=== PATIENT | female | born 1960 | race African-American/Black ===

== ENCOUNTER 2017-12-09 10:37 | Inpatient (IN) | payer OTHER ==
[~2017-12-09] VITALS: Ht 162.6 cm; Wt 47.2 kg
[~2017-12-09 10:37] MED LIST: GLIP5TAB4 PO; METF500T2 PO
[2017-12-09 10:40] VITALS: BP 113/74
[2017-12-09] MEDS ORDERED: IBUP-1842 PO (10:46)
[2017-12-09] MEDS ORDERED: GABA300C PO (10:46)
[2017-12-09] MEDS ORDERED: ACET-2858 PO (10:46)
[2017-12-09] MEDS ORDERED: FOLI1TAB90 PO (10:47)
[2017-12-09] MEDS ORDERED: MEX2.5 PO (10:47)
--- NOTE | 2017-12-09 10:49 | NUR ---
PT PRESNETS TO ER VIA WC WITH C/O SACRAL OPEN WOUNDS AND GENERALIZED MALAISE 1 WEEK, PROGREASSSIVEL GETTING WORSE. 2 DECUBITUS ULCERS NOTED TO SACRAL AREA. NO ACTIVE BLEEDING NOTED, NO ODOR. PICTURES TAKEN. PT DENIES FEVERS/CHILLS, ONLY PAIN 8/10. PT REQUESTING FOOD TO EAT AND TO BE CLEANED UP. PT WITH POOR HYGIENE, APPEARS TO BE HOMELESS WITH ALL BELONGINGS IN W/C, BUT STATES SHE'S IN BETWEEN HOMES AT THIS TIME. RESP EVEN AND UNLABORED, ON RA@98%. DENIES DIARRHEA/VOMTITING. WAIITISIDRO FOR ER MD HOU.
[2017-12-09] MEDS ORDERED: NACL 0.9% 1,000 ML IV SCH (11:23)
[2017-12-09] MEDS ORDERED: PIPERACILLIN/TAZOBACTAM 3.375 GM in DEXTROSE 5% 50 ML IV ONE (11:25)
[2017-12-09] MEDS ORDERED: PIPERACILLIN/TAZOBACTAM 3.375 GM VIAL IV ONE (11:34)
[2017-12-09 11:56] LABS: BASOPHILS % (AUTO) 0.3 % (0.0-2.0); EOSINOPHILS # (AUTO) 0.2 K/uL (0-0.4); EOSINOPHILS % (AUTO) 2.3 % (0.0-4.0); HEMATOCRIT 25.3 % (36-48); HEMOGLOBIN 7.9 g/dL (12.0-16.0); LYMPHOCYTES # (AUTO) 1.7 K/uL (2.5-16.5); LYMPHOCYTES % (AUTO) 19.8 % (20.5-51.1); MEAN CORPUSCULAR HEMOGLOBIN 25 pg (27-31); MEAN CORPUSCULAR HGB CONC 31 g/dL (33-37); MEAN CORPUSCULAR VOLUME 80 fL (80-94); MONOCYTES # (AUTO) 0.5 K/uL (0.8-1.0); MONOCYTES % (AUTO) 5.3 % (1.7-9.3); NEUTROPHILS # (AUTO) 6.2 K/uL (1.8-7.7); NEUTROPHILS % (AUTO) 72.3 % (42.2-75.2); PLATELET COUNT (AUTO) 453 K/uL (140-450); RED BLOOD CELL COUNT(AUTO) 3.16 MIL/uL (4.20-5.40); RED CELL DISTRIBUTION WIDTH 18.1 % (11.6-13.7); WHITE BLOOD COUNT (AUTO) 8.6 K/uL (4.8-10.8)
[2017-12-09] MEDS ORDERED: KETOROLAC 30 MG/ML VIAL IVP ONE (12:05)
[2017-12-09 12:20] LABS: PROTHROMBIN TIME 10.5 secs (10.8-13.4)
[2017-12-09 12:27] LABS: ALBUMIN 1.8 g/dL (3.4-5.0); ANION GAP 17.5 (8-16); CARBON DIOXIDE 21.5 mmol/L (21-32); CREATININE 0.7 mg/dL (0.6-1.3); TOTAL BILIRUBIN 0.1 mg/dL (0.0-1.0)
[2017-12-09] MEDS ORDERED: NACL 0.9% 500 ML IV ONE (13:15)
--- NOTE | 2017-12-09 13:19 | NUR ---
IV FLUIDS AND IV ANBX INFUSING WELL ORDERED VIA PUMP
[2017-12-09] MEDS ORDERED: ZOLPIDEM 5 MG TAB PO PRN (13:30)
[2017-12-09] MEDS ORDERED: ONDANSETRON 4 MG/2 ML VIAL IM/IVP PRN (13:30)
[2017-12-09] MEDS ORDERED: LORazepam 0.5 MG TAB PO PRN (13:30)
[2017-12-09] MEDS ORDERED: HYDROcodone/APAP 7.5/325 MG 1 TAB PO PRN (13:30)
[2017-12-09] MEDS ORDERED: ACETAMINOPHEN 325 MG TAB PO PRN (13:30)
[2017-12-09] MEDS ORDERED: DOCUSATE SODIUM 100 MG GELCAP PO PRN (13:30)
--- NOTE | 2017-12-09 13:41 | NUR ---
LUNCH TRAY SET UP FOR PT
--- NOTE | 2017-12-09 14:05 | NUR ---
NO ACUTE CHANGES IN CONDITION, VSS
[2017-12-09 14:24] LABS: APPEARANCE,URINE CLEAR (CLEAR); BILIRUBIN,URINE NEGATIVE (NEGATIVE); BLOOD, URINE TRACE-I (NEGATIVE); LEUKOCYTE ESTERASE ,URINE NEGATIVE (NEGATIVE); NITRITE, URINE NEGATIVE (NEGATIVE); UGLUCOSE 3+ (NEGATIVE)
[2017-12-09 14:46] LABS: COLOR,URINE STRAW (YELLOW)
[2017-12-09 14:47] LABS: RBC,URINE 0-5 (RARE) /HPF (0-5); WBC,URINE 0-5 (RARE) /HPF (0-5)
--- NOTE | 2017-12-09 14:56 | NUR ---
Patient will be admitted to care of DR FULLER. Admited to TELE. Will go to room. Belongings list completed. Report to .
[2017-12-09 14:59] LABS: CHOL/HDL RATIO 3.8 (1-4.5); FREE T4 (FREE THYROXINE) 1.13 ng/dL (0.76-1.46); MAGNESIUM 1.6 mg/dL (1.8-2.4); PHOSPHORUS 2.3 mg/dL (2.5-4.9); THYROID STIMULATING HORMONE 0.05 uIU/mL (0.34-3.74)
--- NOTE | 2017-12-09 15:00 | NUR ---
RECEIVED PATIENT FROM ER NURSE, PATIENT UNABLE TO AMB, NOTED DEFORMED JOINTS D/T HX OF RA, PATIENT IS ON TELE MONITOR, SHOWS NO S/S OF ACUTE DISTRESS ON ROOM AIR, PATIENT HAS OPEN WOUNDS ON THE SACRUM REYNA,IV NOTED ON THE RIGHT AC WITH IVF'S INFUSING WELL, PATIENT STATES PAIN OF 10/10 AT SACRUM, DR LEON TO PLACE ORDERS FOR PATIENT PAIN. PATIENT WAS EXPLAINED POC FOR TODAY, HOSPITAL ENVIRONMENT, USE OF CALL LIGHT FOR ASSISTANCE. THE BED IS IN LOW POSITION WITH CALL LIGHT WITHIN REACH.
[2017-12-09 15:21] LABS: BARBITURATE, URINE NEG. ng/ml (NEG <=200); BENZODIAZEPINE, URINE NEG. ng/mL (NEG <=200); CANNABINOID, URINE NEG. ng/mL (NEG <=50); COCAINE, URINE NEG. ng/mL (NEG <=300); OPIATE, URINE POS. ng/mL (NEG <=2000); PHENCYCLIDINE SCREEN,URINE NEG. ng/mL (NEG <=25)
--- NOTE | 2017-12-09 16:00 | NUR ---
DR LEON AT BEDSIDE.
[2017-12-09] MEDS: NACL 0.9% 1,000 ML IV SCH ×2 (16:25→23:30)
[2017-12-09] MEDS: MORPHINE SULFATE 2 MG/ML SYR IVP PRN ×2 (16:28→20:05)
[2017-12-09] MEDS ORDERED: DEXTROSE 50% 50 ML SYR IVP PRN (16:30)
--- NOTE | 2017-12-09 16:30 | NUR ---
PATIENT WAS GIVEN MORPHINE 2 MG IVP FOR 10/10 SACRUM PAIN, PATIENT ALSO PREMEDICATED FOR WOUND CARE.
[2017-12-09] MEDS ORDERED: HYDROcodone/APAP 10/325 MG 1 TAB TAB PO PRN (16:55)
[2017-12-09] MEDS ORDERED: IBUPROFEN 400 MG TAB PO PRN (16:55)
[2017-12-09 16:58] VITALS: BP 105/52
[2017-12-09] MEDS: SODIUM PHOS / POTASSIUM PHOS 1 PKT PDR PO SCH (17:05)
[2017-12-09] MEDS ORDERED: MAG SULF 2000 MG/WATER PREMIX 100 ML IV ONE (17:05)
[2017-12-09] MEDS ORDERED: SODIUM PHOS / POTASSIUM PHOS 1 PKT PDR PO SCH (18:00)
--- NOTE | 2017-12-09 18:00 | NUR ---
PROVIDED PATIENT WITH WOUND CARE, COLLECTED AEROBIC AND ANAEROBIC CX FROM BOTH SACRAL WOUNDS AND SENT TO LAB.
[2017-12-09] MEDS: BLOOD GLUCOSE MONITORING 1 DEV DEV FS SCH ×2 (18:11→20:10)
[2017-12-09] MEDS: metFORMIN 500 MG TAB PO SCH (18:12)
[2017-12-09] MEDS: GABAPENTIN 300 MG CAP PO SCH (18:12)
[2017-12-09] MEDS: INSULIN LISPRO SLIDING SCALE 100 UNITS/ML VIAL SUBQ PRN ×2 (18:26→21:01)
--- NOTE | 2017-12-09 18:30 | NUR ---
ADMINISTERED SCHEDULED MEDICATIONS, PATIENT SWALLOWED MEDICATIONS WITHOUT DIFFICULTY. BLOOD SUGAR IS 303 INSULIN COVERAGE GIVEN. HUMALOG 8 UNITS SQ AT UPPER ARM. PATIENT REPOSITIONED, AND GIVEN SWABS FOR DRY MOUTH, WATER CUP WITHIN REACH, BED IN LOW POSITION WITH CALL LIGHT WITHIN REACH.
--- NOTE | 2017-12-09 18:56 | NUR ---
PATIENT REFUSES TO GET ULTRASOUND PROCEDURE DONE, PATIENT IS AGITATED AND STATING "GET ME UP I WANT TO GET IN MY CHAIR." SURFACE ROOM SHOP OPTICIAN NOTIFIED RN.
--- NOTE | 2017-12-09 19:00 | NUR ---
FOUND PATIENT YELLING AT COMMUNITY DEVELOPMENT OFFICER, COMMUNITY DEVELOPMENT OFFICER WAS ATTEMPTING TO CALM PATIENT DOWN. I ASKED PATIENT WHAT WAS WRONG, PATIENT STATED, "I NEED TO SIT UP ON MY CHAIR, I DON'T FEEL SAFE, YOU HAVE PEOPLE WITH PERFUME AND I FEEL MY THROAT CLOSING UP, HELP ME!" RN ATTEMPTED TO CALM PATIENT DOWN, ADVISED PATIENT SHE IS IN A SAFE PLACE AND WE WON'T HAVE ANYONE WITH PERFUME COME INTO HER ROOM. PATIENT STATED, "I LOST TRUST, I TOLD EVERYONE I'M ALLERGIC TO PERFUME AND PESTICIDES, I CAN'T BREATH THAT IN. PLEASE HELP ME GET UP FROM BED INTO MY CHAIR, NOW!" PATIENT WAS EXPLAINED I WOULD NEED ASSISTANCE, ERIC HOWELL CAME TO ASSIST.
--- NOTE | 2017-12-09 19:10 | NUR ---
ERIC RN CAME IN TO ASSIST IN TRANSFERRING PATIENT TO WHEELCHAIR, WHILE ATTEMPTING TO PLACE PATIENT ON WHEELCHAIR, PATIENT SAID, "I FEEL MY THROAT CLOSING UP, I CAN'T SWALLOW." PATIENT IS NOW IN WHEELCHAIR SECURED, V/S MACHINE WAS BROUGHT AND O2 SAT IS 99% ON ROOM AIR, PATIENT WAS EXPLAINED TO TAKE DEEP BREATHS TO TRY AND CALM DOWN; HOWEVER PATIENT BECAME AGITATED AND SAID, "YOU ARE NOT UNDERSTANDING ME, MY THROAT IS CLOSING UP, I CANNOT SWALLOW." PATIENT O2 SAT IS 94% ON ROOM AIR. PATIENT THEN STATED, " I NEED TO GET OUT OF HERE, I FEEL TRAPPED!"
--- NOTE | 2017-12-09 19:15 | NUR ---
WHILE ATTEMPTING TO CALM PATIENT DOWN, SHAWN PELLET POST INSPECTOR CAME IN AND PATIENT STATED, "ARE YOU WEARING POWDER DEODORANT, GET OUT! GET OUT!" SHAWN WAS ASKED TO STEP OUT AND COULD NOT DRAW LABS FOR PATIENT. ERIC ARRIVED WITH A OXYGEN MASK AT PATIENT'S REQUEST FOR O2, PATIENT WAS THEN TAKEN OFF IVF'S BC PATIENT WANTED TO LEAVE HER ROOM. THEN PATIENT LEFT ROOM AND WAS SITTING IN THE HALLWAY IN FRONT OF HER ROOM ON WHEELCHAIR. PATIENT THEN URINATED ON THE FLOOR, PATIENT WAS EXPLAINED SHE NEEDS TO GET CLEANED UP; HOWEVER, PATIENT REFUSED AND STATED, "LET ME JUST BREATH! I LOST ALL MY TRUST AT THIS HOSPITAL." JENI HOWELL ON UNIT, GAVE REPORT TO JENI HOWELL AND IS UP TO DATE ON STATUS OF PATIENT. PATIENT WAS ENDORSED IN STABLE CONDITION, PATIENT ASSISTED BACK INTO ROOM.
--- NOTE | 2017-12-09 19:16 | NUR ---
PATIENT REPORT RECEIVED FROM MORNING NURSE. PATIENT IN WHEELCHAIR RIGHT OUTSIDE HER ROOM. NOTICED PATIENT URINATED ON THE FLOOR. ASSISTED PATIENT BACK TO BED. PERICARE DONE, GOWN CHANGED. FLOOR AND WHEELCHAIR CLEANED. PATIENT COMPLAINED OF 8/10 GENERALIZED PAIN. WILL MEDICATE ORDERED. SAFETY PRECAUTIONS IN PLACE. BED IN LOWEST POSITION, SIDE RAILS UP AND CALL LIGHT WITHIN REACH. WILL CONTINUE TO MONITOR.
[2017-12-09 20:00] VITALS: BP 116/62
[2017-12-09] MEDS ORDERED: glipiZIDE 5 MG TAB PO SCH (21:00)
[2017-12-09] MEDS ORDERED: diphenhydrAMINE 50 MG/ML VIAL IVP ONE (21:10)
[2017-12-09] MEDS: PIPER/TAZO 3.375GM/D5W PREMIX 50 ML IV SCH (21:52)
--- NOTE | 2017-12-09 22:00 | NUR ---
PATIENT VOIDED IN BED. SHEETS AND GOWN CHANGED. PERICARE DONE. PATIENT REPOSITIONED FOR COMFORT. WILL CONTINUE TO MONITOR.
[2017-12-10] VITALS: BP 112/64
--- NOTE | 2017-12-10 | NUR ---
PATIENT VOIDED IN BED. SHEETS AND GOWN CHANGED. PERICARE DONE. PATIENT REPOSITIONED FOR COMFORT. WILL CONTINUE TO MONITOR.
[2017-12-10] MEDS: MORPHINE SULFATE 2 MG/ML SYR IVP PRN ×5 (01:05→21:23)
--- NOTE | 2017-12-10 03:00 | NUR ---
CHECKED ON PATIENT. PATIENT IS ASLEEP. NO SIGNS AND SYMPTOMS OF DISTRESS NOTED. BREATHING EVEN AND UNLABORED. WILL CONTINUE TO MONITOR.
[2017-12-10 04:00] VITALS: BP 117/88
[2017-12-10] MEDS: PIPER/TAZO 3.375GM/D5W PREMIX 50 ML IV SCH ×3 (04:17→21:23)
--- NOTE | 2017-12-10 04:30 | NUR ---
PATIENT STATED THAT SHE WAS HUNGRY AND THAT SHE HADN'T EATEN DINNER. PATIENT WAS ASLEEP MOST OF THE NIGHT. ASSISTED PATIENT WITH EATING APPLESAUCE. PATIENT TOLERATED WELL
[2017-12-10] MEDS: BLOOD GLUCOSE MONITORING 1 DEV DEV FS SCH ×4 (06:35→21:22)
[2017-12-10 07:21] LABS: ANION GAP 16.3 (8-16); BASOPHILS # (AUTO) 0.1 K/uL (0.00-0.22); BASOPHILS % (AUTO) 1.1 % (0.0-2.0); CARBON DIOXIDE 20.2 mmol/L (21-32); CREATININE 0.4 mg/dL (0.6-1.3); EOSINOPHILS # (AUTO) 0.4 K/uL (0-0.4); EOSINOPHILS % (AUTO) 5.9 % (0.0-4.0); HEMATOCRIT 25.1 % (36-48); HEMOGLOBIN 8.1 g/dL (12.0-16.0); LYMPHOCYTES # (AUTO) 1.8 K/uL (2.5-16.5); LYMPHOCYTES % (AUTO) 25.7 % (20.5-51.1); MEAN CORPUSCULAR HEMOGLOBIN 26 pg (27-31); MEAN CORPUSCULAR HGB CONC 32 g/dL (33-37); MEAN CORPUSCULAR VOLUME 81 fL (80-94); MONOCYTES # (AUTO) 0.3 K/uL (0.8-1.0); MONOCYTES % (AUTO) 3.9 % (1.7-9.3); NEUTROPHILS # (AUTO) 4.4 K/uL (1.8-7.7); NEUTROPHILS % (AUTO) 63.4 % (42.2-75.2); PLATELET COUNT (AUTO) 412 K/uL (140-450); POTASSIUM 3.5 mmol/L (3.5-5.1); RED BLOOD CELL COUNT(AUTO) 3.12 MIL/uL (4.20-5.40); RED CELL DISTRIBUTION WIDTH 18.3 % (11.6-13.7)
--- NOTE | 2017-12-10 07:24 | NUR ---
PATIENT REPORT GIVEN TO MORNING NURSE AT BEDSIDE. PATIENT IS IN STABLE CONDITION
--- NOTE | 2017-12-10 07:25 | NUR ---
ENDORSEMENT RECEIVED FROM MASS SPECTROSCOPIST NURSE. PATIENT IS SLEEPING COMFORTABLY. RESPIRATION EVEN, UNLABOR ON ROOM AIR. SKIN DRY AND WARM. IV PATENT AND INTACT. NO DISTRESS NOTED AT THIS TIME. BED AT LOW POSITION, SIDE RAILS UP. CALL LIGHT WITHIN REACH.
[2017-12-10 07:30] LABS: MAGNESIUM 1.7 mg/dL (1.8-2.4); PHOSPHORUS 2.9 mg/dL (2.5-4.9)
[2017-12-10 08:00] VITALS: BP 121/70
[2017-12-10 08:20] LABS: T4 (THYROXINE) 6.7 ug/dL (4.5-12.0)
[2017-12-10] MEDS: GABAPENTIN 300 MG CAP PO SCH ×3 (08:28→17:40)
[2017-12-10] MEDS: SODIUM PHOS / POTASSIUM PHOS 1 PKT PDR PO SCH (08:28)
[2017-12-10] MEDS: metFORMIN 500 MG TAB PO SCH ×2 (08:29→17:40)
[2017-12-10] MEDS: FOLIC ACID 1 MG TAB PO SCH (08:29)
[2017-12-10] MEDS: LACTOBACILLUS RHAMNOSUS GG 1 EACH CAP PO SCH (08:29)
--- NOTE | 2017-12-10 08:45 | NUR ---
PATIENT HAS BEEN SCREENED AND CATEGORIZED HIGH NUTRITION RISK. PATIENT WILL BE SEEN WITHIN 1-2 DAYS OF ADMISSION. 12/09/17-12/10/[address]
--- NOTE | 2017-12-10 09:00 | NUR ---
MEDICAL RECORD RELEASE CONSENT WAS OBTAINED AT BEDSIDE, SIGNED BY THE PATIENT. FAXED TO [facility]. WILL CONTINUE TO FOLLOW UP
[2017-12-10] MEDS: NACL 0.9% 1,000 ML IV SCH ×2 (09:30→21:28)
--- NOTE | 2017-12-10 09:30 | NUR ---
PT IS AT BEDSIDE. PATIENT ASKED FOR PAIN MED, WILL MEDICATE PER ORDER. PATIENT REQUESTED TO HAVE NECK BRACE, WILL NOTIFY MD. PATIENT ALSO REQUEST TO HAVE ONLY ONE DOCTOR ATTENDING TO HER TO PREVENT CONFUSION.
--- NOTE | 2017-12-10 10:15 | NUR ---
WOUND CARE EVALUATION NOTE: REASON FOR EVALUATION : GLUTEAL SURGICAL WOUNDS COMPLETE SKIN ASSESSMENT DONE ON THIS 57 Y/O FEMALE PATIENT ADMITTED TO [facility], WITH INITIAL DIAGNOSIS OF BUTTOCKS POST SURGICAL WOUND PAIN AND DRAINAGE. PAST MEDICAL HISTORY INCLUDE OM, OA RA, ANEMIA, EDEMA AND WI. PT WAS ADMITTED TO [place] ON 11/22/17 FOR I&D. ALL ABOVE INFORMATION OBTAINED FROM THE ADMISSION H&P AND PT. PT IS AAX4. LABS ARE WBC 7.0, H/H 8.1/25.1, GLUCOSE 79 AND ALBUMIN 1.8. PATIENT IS AAOX4. POOR SAFETY AWARENESS, SITTING AT THE EDGE OF BED, DOESN'T LIKE TO FOLLOW THE DIRECTIONS AND SUGGESTIONS. 3 RN ASSIST TO POSITION PT BACK TO SUPINE POSITION. SKIN WARM TO TOUCH WNL, SKIN TURGOR GOOD. CAPILLARY REFILLED <3 SEC. TOENAILS ARE SHORT AND THICKENED, NO HAIR GROWTH, BILATERAL DORSAL PEDAL PULSES PRESENT. INITIAL PLAN OF CARE DISCUSSED WITH PRIMARY RN AND PT. PT ABLE TO VERBALIZE UNDERSTANDING. 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 PAT DRY, APPLY HYDROGEL WITH ADAPTIC DRESSING AND COVER WITH DRY DRESSING QD AND PRN IF SOILING -CLEANSE RIGHT GLUTEAL WITH NS. PAT DRY, APPLY SILVASORB GEL WITH ADAPTIC DRESSING AND COVER WITH DRY DRESSING QD AND PRN IF SOILING -PAINT RIGHT LATERAL 5TH PHALANGES DRY BROWN SCAB WITH BETADINE SOLUTION QD AND LEAVE IT OPEN TO AIR -TURN AND REPOSITION PATIENT Q 2H -ASSESS AND MONITOR SKIN CONDITION DURING POSITION CHANGE -OFFLOAD BILATERAL GLUTEALS BY PLACING PILLOWS UNDER CALVES AT ALL TIMES, UNLESS OTHERWISE CONTRAINDICATED -PRESSURE REDISTRIBUTION SURFACE THERAPY -KEEP SKIN CLEAN AND DRY AT ALL TIMES. MAY APPLY BODY LOTION TO DRYNESS AREA. RECOMMENDATIONS DISCUSSED WITH PRIMARY RN WILL FOLLOW UP PATIENT Q7- 10 DAYS AND PRN. PLEASE CONTACT WOUND CARE NURSE FOR ANY CONCERNS, QUESTIONS AND CHANGES IN SKIN CONDITION. Addendum: 12/10/17 at 1334 by Sangeetha Garces RN (Grace) UN-STAGEABLE PRESSURE ULCER INJURY RIGHT LATERAL 5TH PHALANGES DRY BROWN SCAB 1X1CM DEPTH IS UTD.
--- NOTE | 2017-12-10 10:20 | NUR ---
DR. BARRETO WAS MADE AWARE OF HER MAG LEVEL 1.7, CA 7.7, REQUESTING TO HAVE MECHANICAL SOFT DIET.
--- NOTE | 2017-12-10 12:02 | NUR ---
PATIENT AWAKE, ALERT. RESPIRATION EVEN, UNLABOR ON ROOM AIR. COMPLAINED OF PAIN UPON TURNING TO THE SIDE, WILL MEDICATE PER ORDER. CALL LIGHT WITHIN REACH.
[2017-12-10] MEDS: HYDROcodone/APAP 10/325 MG 1 TAB TAB PO PRN ×2 (12:30→19:09)
--- NOTE | 2017-12-10 14:00 | NUR ---
CALLED [facility] TO FOLLOW UP WITH MEDICAL RECORD. VIRAJ STATED THEY RECEIVED THE CONSENT, BUT WILL PROCESS IT QUICKLY THEY CAN.
--- NOTE | 2017-12-10 14:28 | NUR ---
12/10/2017 RD INITIAL ASSESSMENT COMPLETED PLEASE REFER TO NUTRITION ASSESSMENT UNDER CARE ACTIVITY FOR ESTIMATED NUTRITIONAL NEEDS. CONTINUE [facility] FOR GLUCOSE CONTROL DIETARY WILL ASSIST PT WITH MENU SELECTIONS DAILY FOR BETTER ACCEPTANCE BOOST GLUCOSE CONTROL TID RD TO FOLLOW-UP IN 2-3 DAYS PATIENT IS HIGH RISK. ALEX LINDSEY, RD
--- NOTE | 2017-12-10 14:28 | NUR ---
SPOKE WITH DR. HERNANDEZ, HE PLACED ORDER FOR BOOST GLUCOSE CONTROL TID, [facility]
--- NOTE | 2017-12-10 14:30 | NUR ---
PATIENT WAS ON THE COMMODE, COMPLAINING OF CONSTIPATION AND PAIN, REFUSED TO HAVE ENEMA AND BECAME AGITATED, SCREAMING AT STAFF, WILL NOTIFY MD.
[2017-12-10 15:13] LABS: FOLIC ACID 14.4 ng/mL (>3.0)
--- NOTE | 2017-12-10 15:31 | NUR ---
IV WAS REMOVED ON HER RIGHT AC, CATHETER INTACT, NO ACTIVE BLEEDING SEEN. PATIENT TOLERATED WELL
--- NOTE | 2017-12-10 15:39 | NUR ---
PATIENT COMPLAINED OF FEELING PRESSURE ON THE HEAD, STATED SHE WANTS TO HAVE AN XRAY DONE. WILL NOTIFY .
[2017-12-10 16:00] VITALS: BP 140/62
--- NOTE | 2017-12-10 16:00 | NUR ---
DR. BARRETO WAS NOTIFIED REGARDING PATIENT WOUND CONSULT'S TREATMENT, AND MAG LEVEL 1.7
[2017-12-10] MEDS: glipiZIDE 5 MG TAB PO SCH (17:41)
[2017-12-10] MEDS: INSULIN LISPRO SLIDING SCALE 100 UNITS/ML VIAL SUBQ PRN (17:47)
--- NOTE | 2017-12-10 18:10 | NUR ---
PATIENT IS AWAKE, ALERT, EATING DINNER. RESPIRATION EVEN, UNLABOR ON ROOM AIR. DENIED PAIN AT THIS TIME. IV PATENT AND INTACT. CALL LIGHT WITHIN REACH
--- NOTE | 2017-12-10 19:23 | NUR ---
ENDORSEMENT GIVEN TO THE LAMP DECORATOR NURSE. PATIENT IS STABLE AT THIS TIME. PAIN REASSESSMENT IS ENDORSED TO RN PM
--- NOTE | 2017-12-10 19:24 | NUR ---
Patient's Plan of Care was discussed and reviewed with ENVIRONMENTAL SCIENTIST: MICHELLE MEJIA
[2017-12-10 20:00] VITALS: BP 121/74
--- NOTE | 2017-12-10 21:34 | NUR ---
PATIENT WAS GIVEN ORAL CARE WITH ORAL BALANCE CARE KIT.PATIENT WAS SOILED PATIENT IS CLEANED AND REPOSITIONED FOR COMFORT AND ASSISTED TO TURN AND REPOSITION.PATIENT REFUSED SCD'S.
--- NOTE | 2017-12-10 22:30 | NUR ---
PATIENT COMPLAINS OF INSOMNIA I OFFERED A SLEEPING AID TO THE PATIENT AND PATIENT AGREES PATIENT WAS MEDICATED WITH AMBIEN.PATIENT WAS CLEANED AND GOOD PERICARE GIVEN TO THE PATIENT I CALLED THE RESIDENT JAUN AND INFORMED HER THAT HER PERINEAL AREA IS SLIGHTLY REDDENED MD SAID HE WILL ORDER A CREAM.PATIENT WAS TURNED AND REPOSITIONED. DRESSING TO RT AND LT BUTTOCK HAVE BEEN CHANGED. PATIENT REFUSED SCD'S.CALL LIGHT WITHIN REACH.
[2017-12-10] MEDS: HYDRAGUARD CREAM TP SCH (23:05)
--- NOTE | 2017-12-11 00:30 | NUR ---
PATIENT SLEEPING IN BED IN NO DISTRESS WILL CONTINUE TO MONITOR.PATIENT WANTS DOOR CLOSED BED ALARM ON.
--- NOTE | 2017-12-11 02:29 | NUR ---
PATIENT IS CURRENTLY RESTING IN BED AT THIS TIME ASLEEP IS REPOSITIONING HERSELF IN BED.
--- NOTE | 2017-12-11 02:34 | NUR ---
PATIENT SOUND ASLEEP WITH MOUTH OPEN IN BED AT THIS TIME.PATIENT IS TURNING AND REPOSITIONING HERSELF IN BED.WILL CONTINUE TO MONITOR.CALL LIGHT WITHIN REACH.
--- NOTE | 2017-12-11 04:30 | NUR ---
PATIENT WAS CLEANED AND TURNED AND REPOSITIONED.CALL LIGHT WITHIN REACH.
[2017-12-11] MEDS: MORPHINE SULFATE 2 MG/ML SYR IVP PRN (04:44)
[2017-12-11] MEDS: PIPER/TAZO 3.375GM/D5W PREMIX 50 ML IV SCH ×3 (04:47→20:50)
[2017-12-11 05:00] VITALS: BP 156/66
--- NOTE | 2017-12-11 06:00 | NUR ---
PATIENT SLEEPING IN BED NO DISTRESS OFFERED SOME JUICE PATIENT WANTS TO WAIT FOR BREAKFAST.
[2017-12-11] MEDS: BLOOD GLUCOSE MONITORING 1 DEV DEV FS SCH ×4 (06:14→20:42)
[2017-12-11] MEDS: glipiZIDE 5 MG TAB PO SCH ×2 (06:48→16:56)
[2017-12-11 07:04] LABS: BASOPHILS # (AUTO) 0.1 K/uL (0.00-0.22); BASOPHILS % (AUTO) 0.9 % (0.0-2.0); EOSINOPHILS # (AUTO) 0.6 K/uL (0-0.4); EOSINOPHILS % (AUTO) 7.6 % (0.0-4.0); HEMATOCRIT 26.7 % (36-48); HEMOGLOBIN 8.8 g/dL (12.0-16.0); LYMPHOCYTES # (AUTO) 1.7 K/uL (2.5-16.5); LYMPHOCYTES % (AUTO) 21.9 % (20.5-51.1); MEAN CORPUSCULAR HEMOGLOBIN 26 pg (27-31); MEAN CORPUSCULAR HGB CONC 33 g/dL (33-37); MEAN CORPUSCULAR VOLUME 79 fL (80-94); MONOCYTES # (AUTO) 0.4 K/uL (0.8-1.0); MONOCYTES % (AUTO) 5.4 % (1.7-9.3); NEUTROPHILS % (AUTO) 64.2 % (42.2-75.2); PLATELET COUNT (AUTO) 448 K/uL (140-450); RED BLOOD CELL COUNT(AUTO) 3.38 MIL/uL (4.20-5.40); RED CELL DISTRIBUTION WIDTH 18.5 % (11.6-13.7); WHITE BLOOD COUNT (AUTO) 7.8 K/uL (4.8-10.8)
[2017-12-11 07:08] LABS: CARBON DIOXIDE 21.7 mmol/L (21-32); CREATININE 0.4 mg/dL (0.6-1.3); MAGNESIUM 1.6 mg/dL (1.8-2.4); PHOSPHORUS 4.2 mg/dL (2.5-4.9); POTASSIUM 3.7 mmol/L (3.5-5.1)
--- NOTE | 2017-12-11 07:11 | NUR ---
PATIENT ENDORSED TO RN PETER PATIENT SLEEPING CURRENTLY STABLE.CALL LIGHT WITHIN REACH.
--- NOTE | 2017-12-11 07:12 | NUR ---
RECEIVED REPORT FROM IMPORT CUSTOMS CLEARING AGENT NURSE. PATIENT IS AAOX4, RESPIRATORY EFFORT IS EVEN AND UNLABORED. NO SIGNS AND SYMPTOMS OF ACUTE DISTRESS NOTED AT THIS TIME. PATIENT HAS IV TO RIGHT WRIST 22G INFUSING NS AT 70ML. SITE IS CLEAN DRY PATENT AND INTACT. DISCUSSED PLAN OF CARE WITH PATIENT AND SHE VERBALIZED UNDERSTANDING. PATIENT HAS HER WHEELCHAIR, WITH ALL HER BELONGINGS, INCLUDING A BACK PACK, AND A SUITCASE ATTACHED TO THE CHAIR. BED IS IN LOWEST POSITION, SIDE RAILS UP X2, CALL LIGHT PLACED WITHIN REACH. WILL CONTINUE TO MONITOR.
[2017-12-11 08:00] VITALS: BP 135/79
[2017-12-11] MEDS: metFORMIN 500 MG TAB PO SCH ×2 (08:00→16:53)
[2017-12-11] MEDS: FOLIC ACID 1 MG TAB PO SCH (08:12)
[2017-12-11] MEDS: LACTOBACILLUS RHAMNOSUS GG 1 EACH CAP PO SCH (08:12)
[2017-12-11] MEDS: HYDROcodone/APAP 10/325 MG 1 TAB TAB PO PRN (08:12)
[2017-12-11] MEDS: GABAPENTIN 300 MG CAP PO SCH ×3 (08:13→16:53)
--- NOTE | 2017-12-11 08:15 | NUR ---
GAVE PATIENT A PAIN MEDICATION AND CHANGED HER SOILED CHUCKS AND POSITIONED HER ON HER SLIGHTLY ON HER LEFT.
[2017-12-11] MEDS ORDERED: ALBUTEROL SULFATE/IPRATROPIU 3 ML SOL IH PRN (08:50)
--- NOTE | 2017-12-11 08:50 | NUR ---
PHYSICAL THERAPY STAFF CAME AND REPORTED TO ME THAT PATIENT IS BEING VERY RUDE TO THEM, INSULTING THEM AND REFUSING TO DO PHYSICAL THERAPY. WENT INTO THE ROOM TO SEE WHAT WAS GOING ON. PATIENT WAS SITTING UP ON THE EDGE OF THE BED. PT AND ME LAID PATIENT BACK INTO BED. SHE STATED THAT PEOPLE ARE JUST TOO SENSITIVE, THAT SHE DIDN'T MEAN FOR THE THINGS SHE SAID TO COME OUT RUDE.
[2017-12-11] MEDS: HYDRAGUARD CREAM TP SCH (09:00)
[2017-12-11] MEDS ORDERED: ESCITALOPRAM 20 MG TAB PO SCH (09:07)
[2017-12-11] MEDS ORDERED: predniSONE 10 MG TAB PO SCH (09:08)
[2017-12-11] MEDS ORDERED: ASPIRIN 325 MG TABEC PO SCH ×2 (09:12→09:14)
[2017-12-11] MEDS ORDERED: MAGNESIUM OXIDE 400 MG TAB PO SCH (09:16)
[2017-12-11] MEDS ORDERED: ATORVASTATIN 20 MG TAB PO SCH (09:17)
[2017-12-11] MEDS: NAPROXEN 500 MG TAB PO SCH ×2 (10:18→20:50)
[2017-12-11] MEDS: ECOTRIN 81 MG TABEC PO SCH (10:19)
--- NOTE | 2017-12-11 10:20 | NUR ---
CHANGED PATIENTS DRESSING, TOLERATED WELL. Addendum: 12/11/17 at 1719 by Theresa Rico RN WRONG TIME
--- NOTE | 2017-12-11 11:01 | NUR ---
CHANGED PATIENTS DRESSING, TOLERATED WELL.
[2017-12-11] MEDS: oxyCODONE/APAP 5/325 MG 1 TAB TAB PO PRN ×2 (13:12→20:50)
[2017-12-11] MEDS: INSULIN LISPRO SLIDING SCALE 100 UNITS/ML VIAL SUBQ PRN (13:27)
--- NOTE | 2017-12-11 13:40 | NUR ---
1020 MET WITH PT WITH DR GILL PRESENT. DR GILL WAS DISCUSSING WITH PT POC AND PLAN FOR DISCHARGE. PT HAD WANTED SW TO FIND HER A STUDIO APARTMENT. DCM DISCUSSED OPTION OF SNF VS HOME HEALTH BUT IN ORDER TO HAVE HOME HEALTH PT WOULD NEED TO HAVE AN ADDRESS OF WHERE SHE WOULD BE STAYING. PT VOICED THAT SHE HAD BEEN IN SNFS AND QUESTIONED HOW SAFE SHE WOULD BE AND BEGAN TO RAMBLE ABOUT PREVIOUS SNFS SPREADING RUMORS ABOUT HER. REFOCUSED PT TO THE CURRENT SITUATION AND THE NEED TO PREPARE FOR DISCHARGE. INFORMED PT THAT I COULD HAVE REPRESENTATIVES FROM SEVERAL OF THE SNFS TO COME AND SPEAK WITH HER REGARDING WHAT THEY COULD OFFER AND ADDRESS ANY OF HER CONCERNS SHE MAY HAVE. PT UNWILLING TO PROVIDE DCM WITH AN ANSWER AT THIS TIME. DCM INDICATED THAT IF WOULD RETURN LATER TO DISCUSS AND FIND OUT HER DECISION. 1330 RETURNED TO PT'S ROOM TO DISCUSS DISCHARGE PLAN AND PT REFUSED TO PROVIDE THIS RN OUTPATIENT SURGERY WITH AN ANSWER UNTIL SHE HAD RECEIVED HER MEDICATION. TRIED TO REASON WITH PT THAT SHE JUST NEEDED TO INFORM DCM IF SHE WANTED TO SPEAK WITH REPRESENTATIVES OF SNFS OR NOT AND PT BECAME ARGUMENTATIVE AND RUDE. INFORMED PT THAT THE PHYSICIAN PLANNED TO DC IN SEVERAL DAYS AND SHE NEEDED TO COME UP WITH A PLAN FOR DISCHARGE SINCE IT SEEMS PT DOES WANT ANY ASSISTANCE FROM CM OR SS.
[2017-12-11] MEDS: NACL 0.9% 1,000 ML IV SCH (13:54)
[2017-12-11 16:00] VITALS: BP 117/68
--- NOTE | 2017-12-11 16:00 | NUR ---
MEENA AND MYSELF WENT IN TO CHANGE PATIENT AND REPOSITION HER. I CHANGED HER DRESSING AT THIS TIME, SHE TOLERATED WELL. SHE REFUSED BEING TURNED.
--- NOTE | 2017-12-11 16:00 | NUR ---
PHYSICAL THERAPY CO-SIGN The Physical Therapy Progress Notes documented by Forming Process Line Worker have been reviewed. I concur with the documentation of this EXPLORATION ENGINEER. Plan: continue PT as per plan of care if she remains in this hospital. Reviewed/Co-Signed by: LONG PearsonT Documentation Done by: Mirlande Kaplan EXPLORATION ENGINEER Addendum: 12/12/17 at 0819 by Sheri Traylor PT Amended: Links added.
[2017-12-11] MEDS ORDERED: DOCUSATE SODIUM 100 MG GELCAP PO SCH (17:02)
[2017-12-11] MEDS ORDERED: MORPHINE SULFATE 2 MG/ML SYR IVP PRN (17:20)
--- NOTE | 2017-12-11 19:34 | NUR ---
ENDORSED PATIENT TO HELP DESK MANAGER RN FOR CONTINUITY OF CARE. PATIENT IN STABLE CONDITION.
--- NOTE | 2017-12-11 19:35 | NUR ---
RECEIVED REPORT FROM DAY SHIFT RN, PATIENT RESTING IN BED, NO S/S OF DISTRESS NOTED, RESPIRATION EVEN AND UNLABORED, NO S/S OF DISTRESS NOTED, IV PATENT AND INTACT, INFUSING NS AT 70ML/HR. CALL LIGHT WITHIN REACH, SAFETY MEASURE ENSURED, WILL CONTINUE TO MONITOR.
[2017-12-11 20:00] VITALS: BP 128/75
[2017-12-11] MEDS: DOCUSATE SODIUM 100 MG GELCAP PO SCH (20:50)
--- NOTE | 2017-12-11 20:54 | NUR ---
DUE MEDICATION GIVEN, PATIENT TOLERATED WELL. NO S/S OF DISTRESS NOTED, RESPIRATION EVEN AND UNLABORED, AIR BRAKE RIGGER IS IN THE ROOM CLEANING THE PATIENT, CALL LIGHT WITHIN REACH, SAFETY MEASURE ENSURED, WILL CONTINUE TO MONITOR.
--- NOTE | 2017-12-11 22:36 | NUR ---
PATIENT ASKED FOR REPOSITIONING, REPOSITIONED PATIENT WITH THE HEALTH UNIT SUPERVISOR REQUESTED. CALL LIGHT WITHIN REACH, SAFETY MEASURE ENSURED, WILL CONTINUE TO MONITOR.
[2017-12-12] VITALS: BP 119/67
[2017-12-12] MEDS: HYDROcodone/APAP 10/325 MG 1 TAB TAB PO PRN ×3 (00:37→19:09)
--- NOTE | 2017-12-12 00:56 | NUR ---
CHANGED BOTH DRESSING, AND REPOSITIONED THE PATIENT, ADMINISTER PAIN MEDICATION ORDERED. CALL LIGHT WITHIN REACH, SAFETY MEASURE ENSURED, WILL CONTINUE TO MONITOR.
--- NOTE | 2017-12-12 02:21 | NUR ---
PATIENT ASKED ME TO CHANGE HER DRESSING, UPON ASSESSMENT, DRESSING ARE DRY AND INTACT, BUT PATIENT INSIST, BOTH DRESSING CHANGED ASKED, CLEANED THE PATIENT AND CHANGED THE SHEET. REPOSITIONED PATIENT WITH THE WELLNESS AMBASSADOR, CALL LIGHT WITHIN REACH, SAFETY MEASURE ENSURED, WILL CONTINUE TO MONITOR.
[2017-12-12] MEDS: PIPER/TAZO 3.375GM/D5W PREMIX 50 ML IV SCH ×2 (04:07→12:01)
[2017-12-12] MEDS: NACL 0.9% 1,000 ML IV SCH (04:07)
--- NOTE | 2017-12-12 04:25 | NUR ---
HEARD PATIENT YELLING AT THE DOWNSTAIRS MAID, UPON ASSESSMENT, PATIENT SAID," SHE DOESN'T KNOW HOW TO DO HER JOB, SHE DOESN'T KNOW WHAT I AM GOING THROUGH." ASKED PATIENT ANYTHING THAT I COULD DO, PATIENT SAID PAIN 07/19, WILL GIVE PAIN MEDICATION ORDERED.
[2017-12-12] MEDS: oxyCODONE/APAP 5/325 MG 1 TAB TAB PO PRN ×2 (04:30→15:02)
[2017-12-12] MEDS: BLOOD GLUCOSE MONITORING 1 DEV DEV FS SCH ×2 (06:40→11:47)
--- NOTE | 2017-12-12 06:46 | NUR ---
PATIENT YELLING AT CLEAN UP SUPERVISOR," YOU WEAR PERFUME, GET OUT OF MY ROOM, GET OUT, YOU SHOULD NOT WEAR PERFUME WHEN YOU COME TO WORK, I AM ALLERGIC TO THAT SMELL. I CAN'T BREATH, GET OUT." ASSESSMENT DONE, NO S/S OF DISTRESS NOTED, RESPIRATION EVEN AND UNLABORED. PATIENT ASKED ME TO REPOSITIONED HER, I SAID," I NEED TO FIND ANOTHER CLEAN UP SUPERVISOR TO HELP ME." WHEN I BROUGHT ANOTHER CLEAN UP SUPERVISOR IN THE ROOM TO TURN THE PATIENT, PATIENT YELLED AT THE CLEAN UP SUPERVISOR, " YOU STUPID WEAR PERFUME, DON'T TOUCH ME, GET OUT." INFORMED PATIENT THAT THE CLEAN UP SUPERVISOR DOES NOT WEAR PERFUME, PATIENT YELLED AT ME," YOU LIAR, YOU LIED TO ME, THAT PERSON WEAR PERFUME UNDER HER CLOTHES, WHEN SHE MOVES, I CAN SMELL IT." FOUND ANOTHER RN TO HELP ME TURN THE PATIENT, REPOSITIONED THE PATIENT ASKED. CALL LIGHT WITHIN REACH, SAFETY MEASURE ENSURED, WILL CONTINUE TO MONITOR.
[2017-12-12] MEDS: glipiZIDE 5 MG TAB PO SCH ×2 (06:48→16:30)
--- NOTE | 2017-12-12 07:20 | NUR ---
ENDORSED PLAN OF CARE TO DAY SHIFT RN, PATIENT IS IN STABLE CONDITION, NO S/S OF DISTRESS.
[2017-12-12 08:00] VITALS: BP 120/56
[2017-12-12 08:04] LABS: BASOPHILS % (AUTO) 0.5 % (0.0-2.0); EOSINOPHILS # (AUTO) 0.4 K/uL (0-0.4); EOSINOPHILS % (AUTO) 5.3 % (0.0-4.0); HEMATOCRIT 24.9 % (36-48); HEMOGLOBIN 7.9 g/dL (12.0-16.0); LYMPHOCYTES % (AUTO) 24.3 % (20.5-51.1); MEAN CORPUSCULAR HEMOGLOBIN 25 pg (27-31); MEAN CORPUSCULAR HGB CONC 32 g/dL (33-37); MEAN CORPUSCULAR VOLUME 80 fL (80-94); MONOCYTES # (AUTO) 0.4 K/uL (0.8-1.0); MONOCYTES % (AUTO) 4.7 % (1.7-9.3); NEUTROPHILS # (AUTO) 5.6 K/uL (1.8-7.7); NEUTROPHILS % (AUTO) 65.2 % (42.2-75.2); PLATELET COUNT (AUTO) 478 K/uL (140-450); RED BLOOD CELL COUNT(AUTO) 3.12 MIL/uL (4.20-5.40); RED CELL DISTRIBUTION WIDTH 18.4 % (11.6-13.7); WHITE BLOOD COUNT (AUTO) 8.4 K/uL (4.8-10.8)
--- NOTE | 2017-12-12 08:11 | NUR ---
PT ASSISTED TO SIT UP TO SIDE OF BED FOR BREAKFAST.
--- NOTE | 2017-12-12 08:12 | NUR ---
PT STATES STOKES AND TOAST ARE TOO CRUNCHY FOR HER TO EAT BECAUSE SHE DOES NOT HAVE TEETH, PEANUT BUTTER AND JELLY SANDWITCH REQUESTED FROM [employer].
--- NOTE | 2017-12-12 08:30 | NUR ---
PT REPEATEDLY PUSHES CALLBELL, PT NOW REQUESTING MORE COFFEE, WILL GET HER A CUP.
[2017-12-12] MEDS ORDERED: ASPIRIN 325 MG TABEC PO SCH ×2 (09:00)
[2017-12-12] MEDS ORDERED: ECOTRIN 81 MG TABEC PO SCH (09:00)
[2017-12-12] MEDS ORDERED: ATORVASTATIN 20 MG TAB PO SCH (09:00)
[2017-12-12] MEDS ORDERED: ESCITALOPRAM 20 MG TAB PO SCH (09:00)
[2017-12-12] MEDS ORDERED: predniSONE 10 MG TAB PO SCH (09:00)
--- NOTE | 2017-12-12 09:10 | NUR ---
PT ASSISTED TO BEDSIDE COMMODE BY STUDENT NURSE.
[2017-12-12] MEDS: ECOTRIN 81 MG TABEC PO SCH (09:16)
[2017-12-12] MEDS: NAPROXEN 500 MG TAB PO SCH (09:17)
[2017-12-12] MEDS: metFORMIN 500 MG TAB PO SCH ×2 (09:18→19:09)
[2017-12-12] MEDS: FOLIC ACID 1 MG TAB PO SCH (09:18)
[2017-12-12] MEDS: LACTOBACILLUS RHAMNOSUS GG 1 EACH CAP PO SCH (09:18)
[2017-12-12] MEDS: GABAPENTIN 300 MG CAP PO SCH ×3 (09:19→19:09)
[2017-12-12] MEDS: DOCUSATE SODIUM 100 MG GELCAP PO SCH (09:19)
--- NOTE | 2017-12-12 09:30 | NUR ---
DR BOOKER TO BEDSIDE, PT ON BEDSIDE COMMODE, C/O UNABLE TO HAVE BM, ENEMA ORDERED.
--- NOTE | 2017-12-12 09:35 | NUR ---
PT RETURNED BACK TO BED FROM BEDSIDE COMMODE, STATES SHE IS IN IMMENSE PAIN,08/18, WILL GIVEN NORCO. OTHER AM MEDS GIVEN AMBERLY WELL. Addendum: 12/12/17 at 1254 by Delaney Anderson RN MODERATE SIZE ROUND BROWN HARD STOOL NOTED IN BEDSIDE COMMODE.
[2017-12-12] MEDS: HYDRAGUARD CREAM TP SCH (09:37)
--- NOTE | 2017-12-12 09:50 | NUR ---
PT ASSISTED FROM SIDE OF BED BACK UP TO BED, POSITIONED FOR COMFORT WITH PILLOWS UNDER LEGS, NEW WARM BLANKET, MEDICATED FOR PAIN, PT REFUSES ENEMA NOW, WILL OFFER LATER, CALL MARTINI WITHIN REACH, SIDE RAILS UP, WILL CONTINUE TO MONITOR.
[2017-12-12 10:27] LABS: ANION GAP 17.1 (8-16); CARBON DIOXIDE 20.6 mmol/L (21-32); CREATININE 0.5 mg/dL (0.6-1.3); POTASSIUM 3.7 mmol/L (3.5-5.1)
[2017-12-12 10:28] LABS: MAGNESIUM 1.6 mg/dL (1.8-2.4); PHOSPHORUS 3.6 mg/dL (2.5-4.9)
--- NOTE | 2017-12-12 10:45 | NUR ---
PT REFUSES ENEMA AT THIS TIME, PT REQUESTS IT TO BE DONE AT LATER TIME.
--- NOTE | 2017-12-12 11:17 | NUR ---
Social Service Note: I met with patient at bedside. Per patient, she is in agreement with LTAC or SNF short term placement. She reported she has an one negative experience at SNF previously but is willing to be transfer to a SNF upon discharge. She requested I contact a nursing facility located in [place], [place]; and inquired if she could meet with a call center representative from [facility]. She stated she is in agreement with any SNF located in [place], [place]. I I called Ted from [facility] no answer, left message. I faxed patient's face sheet to [facility]. Addendum: 12/12/17 at 1414 by Tasneem HANSEN Per patient, she does not want to go to a snf located in [place], [place].
[2017-12-12] MEDS: INSULIN LISPRO SLIDING SCALE 100 UNITS/ML VIAL SUBQ PRN (11:47)
--- NOTE | 2017-12-12 11:50 | NUR ---
2UNITS INSULIN GIVEN PER SLIDING SCALE FOR BS 172. PT AMBERLY WELL.
--- NOTE | 2017-12-12 12:15 | NUR ---
12/12/17 RD FOLLOW UP COMPLETED Please refer to nutrition assessment under care activity for estimated needs. Recommendations: 1. Continue 60gm CCHO diet as tolerated. 2. Appreciate food preferences. 3. Provide Boost plus (chocolate) if pt refuses meal, flavor per pt preference. RD will follow up in 2-3 days; high risk. Lani Kaur RD, [facility]
--- NOTE | 2017-12-12 12:19 | NUR ---
WOUND CARE AND DRESSING CHANGE DONE PER WOUND CARE NURSE RECOMMENDATION, PT AMBERLY WELL.
--- NOTE | 2017-12-12 12:30 | NUR ---
PT ASSISTED TO SIT UP AT SIDE OF BED FOR LUNCH, PT ASSISTED WITH OPENING OF SOUP, JELLO, APPLESAUCE, COFFEE CREAMER WITH SUGAR, CALL MARTINI WITHIN REACH, WILL CONTINUE TO MONITOR
--- NOTE | 2017-12-12 12:49 | NUR ---
EXTRA BOWL OF TOMATO SOUP PROVIDED PER PT REQUEST.
--- NOTE | 2017-12-12 13:20 | NUR ---
PT ASSISTED UP TO BEDSIDE COMMODE, LARGE URINE VOIDED, PT ASSISTED BACK TO BED, POSITIONED FOR COMFORT, PILLOWS FOR COMFORT AND TO OFFLOAD PRESSURE POINTS, CALL MARTINI WITHIN REACH, SIDE RAIL UP, WILL CONTINUE TO MONTIOR
--- NOTE | 2017-12-12 13:41 | NUR ---
Social Service Note: SNF placement follow up: I faxed inquires to [facility] , [facility] , and [facility] . Per Bessy from [facility], no female beds available at this time. Per Tesha from [facility], no female beds available at this time, she stated they received snf referral from another hospital in the past and their snf had concerns regarding patient's behavior, unable to accept patient. I was informed by salon receptionist from [facility], we needed to call back on Thursday, admission coordinator not available on this weekend. I faxed inquiry to [facility] . Per Sue from [facility], they can accept patient, room 29B. I went to patient's room to provide her with a snf placement update. At first patient agreed with going to [facility] and was calm. However, patient demanded we fix her wheelchair scooter because she alleged E.R. staff broke it. She accused hospital staff of wanting to throw her somewhere. Patient raised her voice and became agitated. I attempted to call patient down multiple times, attempts were not successful. I explained to her that we don't throw patients out, on contrary we made efforts to ensure our patients had a safe discharge plan. Patient stated she wanted to leave hospital and reported she did not want to go to any facility. I relayed the above information to charge nurse Nuzhat. Addendum: 12/12/17 at 1420 by Tasneem HANSEN Correction: I explained to her that we don't throw patients out, on contrary we make efforts to ensure our patients have a safe discharge plan Addendum: 12/12/17 at 1518 by Tasneem Horta Was informed by patient's nurse patient is in agreement with going to [facility], stated patient would like to know if snf has a smoking area. Per Sue from [facility] they have smoking areas outside, informed patient's nurse of this.
[2017-12-12] MEDS ORDERED: MAGNESIUM OXIDE 400 MG TAB PO SCH (14:35)
[2017-12-12] MEDS ORDERED: ATI.5 PO (14:55)
[2017-12-12] MEDS ORDERED: DOCU-299 PO (14:55)
[2017-12-12] MEDS ORDERED: GLUC-805 FS (14:55)
[2017-12-12] MEDS ORDERED: D50SYR IVP (14:55)
[2017-12-12] MEDS ORDERED: PIPE1SOL IV (14:55)
[2017-12-12] MEDS ORDERED: PRED10TA5 PO (14:55)
[2017-12-12] MEDS ORDERED: HUMSLIDE SUBQ (14:55)
[2017-12-12] MEDS ORDERED: Hydraguard TP (14:55)
[2017-12-12] MEDS ORDERED: IPRA3AMP IH (14:55)
[2017-12-12] MEDS ORDERED: LACT10CA PO (14:55)
[2017-12-12 16:00] VITALS: BP 113/71
--- NOTE | 2017-12-12 16:00 | NUR ---
PT ASSISTED TO SIT UP AT SIDE OF BED FOR COFEE AND BOOST.
--- NOTE | 2017-12-12 16:26 | NUR ---
PT REQUESTS ROBERTH SANDWITCH, DIETARY CALLED AND LEFT MESSAGE.
--- NOTE | 2017-12-12 17:08 | NUR ---
PT ASSISTED UP TO BEDSIDE COMMODE, AMBERLY WELL, PT MADE AWARE OF PLAN [place]SP[place] 1930 [place] [facility] [place] VAN TO COME GET HER SCOOTER/WHEELCHAIR AT 1999, PT AGREEABLE WITH PLAN.
--- NOTE | 2017-12-12 17:20 | NUR ---
REPORT CALLED [place] [facility] [phone] NURSE SUSHIL, ALL QUESTIONS ASKED AND ANSWERED, ACCEPTING DR LEONOR LING, ETA FOR TRANSPORT [facility], PT AWARE OF PLAN, PT NOTIFIED HER ROOM NUMBER 29B, WILL CONTINUE TO MONITOR.
--- NOTE | 2017-12-12 17:30 | NUR ---
PT ASSISTED TO SIT UP TO SIDE OF BED FOR DINNER, PT AMBERLY WELL, ASSISTED WITH OPENING PACKAGES, BUTTERING BREAD, CALL MARTINI WITHIN REACH, WILL CONTINUE TO MONTIOR.
--- NOTE | 2017-12-12 18:09 | NUR ---
PT PHOTO TAKEN OF WOUNDS, PT ASSISTED WITH DRESSING INTO HER STREET CLOTHES, AWAITING [place] [facility] [place]
--- NOTE | 2017-12-12 19:20 | NUR ---
TRANSPORT HERE TO PICK HER UP, PT NOW REFUSES TO TAKE "PREMIRE" TO GO TO [facility], PT STATES "I HAD BAD EXPEIRENCE WITH THEM BEFORE", PT STATES SHE WOULD RATHER LEAVE ON HER OWN THAN TO TAKE PREMIRE", PT REPEATEDLY ENCOURAGED TO TAKE THE TRANSPORTATION AVAILABLE NOW TO [facility] [place] SINCE IT IS LATE AND DARK OUTSIDE BUT PT ADAMANTLY REFUSES TO TAKE PREMIRE AND STATES SHE WOULD RATHER LEAVE IN HER WHEELCHAIR TO TAKE THE BUS. CHARGE NURSE AND RESIDEN DOCTOR MADE AWARE.
--- NOTE | 2017-12-12 19:50 | NUR ---
PATIENT REFUSED TO GO BY STATED SHE HAS A PROBLEM WITH THEM WANTED TO SIGN AMA. DR BUI TALKED TO HER EXPLAIN THE HIGH RISK FOR GOING AMA BUT PATIENT VERY UNCOOPERATIVE , VERBALLY ABUSIVE. SIGNED AMA .CALLED AND CANCELLED THE ELECTRIC WHEELCHAIR TRANSPORT WITH .
--- NOTE | 2017-12-12 19:57 | NUR ---
CALLED [facility] AND NOTIFIED PRAVIN HOWELL THAT PATIENT REFUSED TO COME AND SIGN AMA.
== END 2017-12-12 19:55 | disposition left against medical advice (07) | DRG 592 ==
LOC: MED 10:37 → MTU 13:30
PROVIDERS: ADMIT Family Medicine Sports Medicine; ATTEND Family Medicine Sports Medicine
DX: L89.314 Pressure ulcer of right buttock, stage 4 (principal); N17.0 Acute kidney failure with tubular necrosis; E43 Unspecified severe protein-calorie malnutrition; D68.59 Other primary thrombophilia; E11.51 Type 2 diabetes mellitus with diabetic peripheral angiopathy without gangrene; E11.65 Type 2 diabetes mellitus with hyperglycemia; E83.42 Hypomagnesemia; E87.8 Other disorders of electrolyte and fluid balance, not elsewhere classified; Z68.1 Body mass index [BMI] 19.9 or less, adult; L89.324 Pressure ulcer of left buttock, stage 4; D64.9 Anemia, unspecified; Z53.21 Procedure and treatment not carried out due to patient leaving prior to being seen by health care provider; I70.209 Unspecified atherosclerosis of native arteries of extremities, unspecified extremity; M06.9 Rheumatoid arthritis, unspecified; F43.9 Reaction to severe stress, unspecified; B96.20 Unspecified Escherichia coli [E. coli] as the cause of diseases classified elsewhere; B95.5 Unspecified streptococcus as the cause of diseases classified elsewhere; D47.3 Essential (hemorrhagic) thrombocythemia; E83.51 Hypocalcemia; M99.01 Segmental and somatic dysfunction of cervical region; J84.10 Pulmonary fibrosis, unspecified; M43.12 Spondylolisthesis, cervical region; M47.892 Other spondylosis, cervical region; F17.210 Nicotine dependence, cigarettes, uncomplicated; E05.90 Thyrotoxicosis, unspecified without thyrotoxic crisis or storm; J45.909 Unspecified asthma, uncomplicated; I25.2 Old myocardial infarction; Z59.0 Homelessness
CPT/HCPCS: 36415; 36600; 71045; 71111; 72052; 80048; 80053; 80305; 81001; 82150; 82607; 82746; 82803; 82948; 83036; 83605; 83690; 83735; 83880; 84100; 84436; 84439; 84443; 84479; 84484; 85025; 85045; 85610; 85730; 87040; 87070; 87081; 87086; 87186; 90471; 90715; 93005; 93925; 93970; 96365; 96375; 97110; 97140; 97530; 99285; A4649; J1200; J1815; J1885; J2270; J2543; J3475; J7030; J7060; J7512; Q0092

== ENCOUNTER 2017-12-24 18:58 | Emergency (ER) | payer OTHER ==
[~2017-12-24] VITALS: Ht 162.6 cm; Wt 54.9 kg
[~2017-12-24 18:58] MED LIST changes: +ACET-2858 PO; +ATI.5 PO; +D50SYR IVP; +DOCU-299 PO; +FOLI1TAB90 PO; +GABA300C PO; +GLUC-805 FS; +HUMSLIDE SUBQ; +Hydraguard TP; +IBUP-1842 PO; +IPRA3AMP IH; +LACT10CA PO; +MEX2.5 PO; +PIPE1SOL IV; +PRED10TA5 PO
[2017-12-24 19:34] VITALS: BP 134/70
--- NOTE | 2017-12-24 19:44 | NUR ---
PT RETURNED TO LOBBY
--- NOTE | 2017-12-24 20:30 | NUR ---
PT MOVED UP IN CHAIR BY TWO RN'S
--- NOTE | 2017-12-24 22:45 | NUR ---
57 Y/O FEMALE BIB SELF C/O BILAT LEG PAIN W/ EDEMA. PT AMB WITH WHEELCHAIR PT STATES PAIN IS CHRONIC W/ HISTORY OF ARTHIRITS. PT DENIES ANY N/V/D/, SOB, CP AT THE [facility]. PT AAOX4, PT WAS ASSISTED FROM WHEELCHAIR TO ER BED 12. PT STATES SHE TAKES GABAPTETIN 600 MG, METFORMIN 1G, GLIPIZIDE 5MG, AND NORCO 325 ALL OTHER MEDS UNABTAINABLE AT THE [facility] PT CANNOT RECALL
[2017-12-24 23:25] LABS: BASOPHILS # (AUTO) 0.1 K/uL (0.00-0.22); BASOPHILS % (AUTO) 1.3 % (0.0-2.0); EOSINOPHILS # (AUTO) 0.3 K/uL (0-0.4); EOSINOPHILS % (AUTO) 2.7 % (0.0-4.0); HEMATOCRIT 26.7 % (36-48); HEMOGLOBIN 8.4 g/dL (12.0-16.0); LYMPHOCYTES # (AUTO) 1.4 K/uL (2.5-16.5); LYMPHOCYTES % (AUTO) 14.1 % (20.5-51.1); MEAN CORPUSCULAR HEMOGLOBIN 25 pg (27-31); MEAN CORPUSCULAR HGB CONC 32 g/dL (33-37); MEAN CORPUSCULAR VOLUME 79 fL (80-94); MONOCYTES # (AUTO) 0.3 K/uL (0.8-1.0); MONOCYTES % (AUTO) 2.5 % (1.7-9.3); NEUTROPHILS % (AUTO) 79.4 % (42.2-75.2); PLATELET COUNT (AUTO) 418 K/uL (140-450); RED CELL DISTRIBUTION WIDTH 18.2 % (11.6-13.7); WHITE BLOOD COUNT (AUTO) 10.1 K/uL (4.8-10.8)
[2017-12-24 23:37] LABS: ANION GAP 16.3 (8-16); CARBON DIOXIDE 24.1 mmol/L (21-32); CREATININE 0.6 mg/dL (0.6-1.3); POTASSIUM 3.4 mmol/L (3.5-5.1)
[2017-12-24] MEDS ORDERED: INSULIN REGULAR, HUMAN 100 UNIT/ML VIAL IVP ONE (23:40)
[2017-12-24 23:42] LABS: ALBUMIN 2.1 g/dL (3.4-5.0); TOTAL BILIRUBIN 0.1 mg/dL (0.0-1.0)
[2017-12-25] MEDS ORDERED: INSULIN REGULAR, HUMAN 100 UNIT/ML VIAL SUBQ ONE (01:20)
--- NOTE | 2017-12-25 01:35 | NUR ---
Patient appears to be resting comfortably in bed. Vital Signs within normal limits. Respirations even and unlabored.
--- NOTE | 2017-12-25 06:43 | NUR ---
Patient discharged with v/s stable. Written and verbal after care instructions given and explained. Patient verbalized understanding. Wheel Chair Assisted with to home. All questions addressed prior to discharge. Advised to follow up with PMD.
[2017-12-25 06:44] VITALS: BP 119/69
== END 2017-12-25 06:43 | disposition home or self-care (01) ==
LOC: MED 18:58
DX: M79.605 Pain in left leg (principal); M79.604 Pain in right leg; E11.9 Type 2 diabetes mellitus without complications; M06.9 Rheumatoid arthritis, unspecified; M19.90 Unspecified osteoarthritis, unspecified site; Z79.899 Other long term (current) drug therapy; Z79.84 Long term (current) use of oral hypoglycemic drugs
CPT/HCPCS: 36415; 80053; 82948; 85025; 87040; 99284; J1815

== ENCOUNTER 2018-04-22 09:49 | Inpatient (IN) | payer OTHER ==
[~2018-04-22] VITALS: Ht 162.6 cm; Wt 58.5 kg
[2018-04-22 09:53] VITALS: BP 139/77
--- NOTE | 2018-04-22 10:10 | NUR ---
PT BY MOTORIZED WHEELCHAIR TO BED 3
--- NOTE | 2018-04-22 10:22 | NUR ---
57 YO PT W/ C/O POSSIBLE INFECTION TO WOUNDS ON BILAT ARMS AND BUTTOCKS. PT REPORTS THE WOUND ON HER BUTTOCKS IS FROM A SURGERY, BUT SHE WOULD NOT DISCUSS THE DETAILS OF SURGERY OR WHEN THE SURGERY WAS. PT IS UNABLE TO AMBULATE AND HAS HER MOTORIZED W/C. REPORTS SHE WAS AT A FACILITY AND LEFT THERE AMA, DID NOT SAY WHICH FACILITY OR WHEN. PT STATES SHE IS NOW HOMELESS. ALL FINGERS ON BILATERALLY HANDS HAVE LOST FUNCTION RELATED TO RA. 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 A&O X 4. GCS 15. CMS INTACT. RR EVEN AND UNLABORED. LUNGS BILATERALLY CLEAR. ABD SOFT, NON-TENDER. ER MD GORDON NOTIFIED. PT NEEDS MET. SAFETY PRECAUTIONS IN PLACE. WILL CONTINUE TO MONITOR.
--- NOTE | 2018-04-22 10:54 | NUR ---
Pt is from [facility]. Pt has bilateral buttock wounds that are unstageable. Pt reports she had the wound debridement surgery 5 weeks ago.
[2018-04-22] MEDS ORDERED: NACL 0.9% 2,000 ML IV SCH (11:05)
[2018-04-22] MEDS ORDERED: fentaNYL 0.05 MG/ML VIAL IVP ONE (11:05)
[2018-04-22] MEDS ORDERED: PIPERACILLIN/TAZOBACTAM 3.375 GM in DEXT 5% MINI-BAG PLUS 50 ML IV ONE (11:05)
--- NOTE | 2018-04-22 11:35 | NUR ---
PT TO CT SCAN AT THIS TIME VIA ANDRÉS W/O INCIDENT.
[2018-04-22 11:52] LABS: BASOPHILS # (AUTO) 0.3 K/uL (0.00-0.22); BASOPHILS % (AUTO) 2.3 % (0.0-2.0); EOSINOPHILS # (AUTO) 0.1 K/uL (0-0.4); EOSINOPHILS % (AUTO) 0.9 % (0.0-4.0); HEMATOCRIT 32.6 % (36-48); HEMOGLOBIN 10.5 g/dL (12.0-16.0); LYMPHOCYTES # (AUTO) 3.6 K/uL (2.5-16.5); LYMPHOCYTES % (AUTO) 23.6 % (20.5-51.1); MEAN CORPUSCULAR HEMOGLOBIN 25 pg (27-31); MEAN CORPUSCULAR HGB CONC 32 g/dL (33-37); MEAN CORPUSCULAR VOLUME 78.8 fL (80-94); MONOCYTES # (AUTO) 0.7 K/uL (0.8-1.0); MONOCYTES % (AUTO) 4.7 % (1.7-9.3); NEUTROPHILS # (AUTO) 10.5 K/uL (1.8-7.7); NEUTROPHILS % (AUTO) 68.5 % (42.2-75.2); PLATELET COUNT (AUTO) 393 K/uL (140-450); RED BLOOD CELL COUNT(AUTO) 4.13 MIL/uL (4.20-5.40); RED CELL DISTRIBUTION WIDTH 23.1 % (11.6-13.7); WHITE BLOOD COUNT (AUTO) 15.2 K/uL (4.8-10.8)
[2018-04-22] MEDS ORDERED: PIPERACILLIN/TAZOBACTAM 3.375 GM VIAL IV ONE (12:01)
[2018-04-22 12:16] LABS: PROTHROMBIN TIME 10.4 secs (10.8-13.4)
[2018-04-22 12:17] LABS: ANION GAP 11.7 (8-16); CREATININE 0.7 mg/dL (0.6-1.3); POTASSIUM 3.7 mmol/L (3.5-5.1)
[2018-04-22 12:20] LABS: APPEARANCE,URINE CLEAR (CLEAR); BILIRUBIN,URINE NEGATIVE (NEGATIVE); BLOOD, URINE NEGATIVE (NEGATIVE); COLOR,URINE YELLOW (YELLOW); LEUKOCYTE ESTERASE ,URINE NEGATIVE (NEGATIVE); NITRITE, URINE NEGATIVE (NEGATIVE); PH,URINE 6.5 (5.0-9.0); UGLUCOSE 3+ (NEGATIVE)
[2018-04-22 12:21] LABS: AMYLASE 30 U/L (25-115); LIPASE 93 U/L (73-393)
[2018-04-22 12:23] LABS: ALBUMIN 2.5 g/dL (3.4-5.0); TOTAL BILIRUBIN 0.2 mg/dL (0.0-1.0)
[2018-04-22 12:30] LABS: CREATINE KINASE MB 3.8 ng/mL (0-3.6)
--- NOTE | 2018-04-22 12:42 | NUR ---
Lactic acid 2.4 received at this time from Yulisa. Er MD Clayton notified.
[2018-04-22] MEDS ORDERED: LORazepam 2 MG/ML VIAL IM/IVP PRN (13:25)
[2018-04-22] MEDS ORDERED: ACETAMINOPHEN 325 MG TAB PO PRN (13:25)
[2018-04-22] MEDS ORDERED: ZOLPIDEM 5 MG TAB PO PRN (13:25)
[2018-04-22] MEDS ORDERED: DOCUSATE SODIUM 100 MG GELCAP PO PRN (13:25)
--- NOTE | 2018-04-22 13:50 | NUR ---
pt resting comfortably in [facility] at this time. will continue to monitor.
--- NOTE | 2018-04-22 14:00 | NUR ---
pt asleep on [facility] at this time. vss. pt needs met. will continue to monitor.
--- NOTE | 2018-04-22 15:00 | NUR ---
RECEIVED PT FROM ER VIA ANDRÉS, PT IS AAOX4, ABLE TO FOLLOW COMMANDS AND MAKE NEEDS KNOWN, NO S/S OF DISTRESS, CLEAR LUNG SOUNDS REENA, DENIES CHEST PAIN, SR ON TELE MONITOR, SOFT ABDOMEN WITH ACTIVE BOWEL SOUNDS, CONTINENT WITH B&B'S, GENERALIZED WEAKNESS NOTED, +2 PITTING EDEMA TO BLE NOTED, SKIN IS WARM AND DRY TO TOUCH, DECUBITUS ULCER TO REENA. BUTTOCKS NOTED, IV SITE TO RIGHT FOREARM, 20GA, PATENT AND SL. VSS, C/O PAIN TO WOUND SITE, WILL MEDICATED, EXPLAINED POC TO PATIENT, PT VERBALIZED UNDERSTANDING, SAFETY MEASURES IN PLACE, CALL LIGHT WITHIN REACH, WILL CONTINUE TO MONITOR.
--- NOTE | 2018-04-22 15:09 | NUR ---
Patient will be admitted to care of [facility]. Admited to Tele. Will go to room 116. Belongings list completed. Report to LYNDA Stack.
[2018-04-22] MEDS: NACL 0.9% 1,000 ML IV SCH ×2 (15:30→23:25)
--- NOTE | 2018-04-22 15:45 | NUR ---
WOUND CARE CONSULT DONE AT BEDSIDE.
[2018-04-22 16:00] VITALS: BP 116/64
--- NOTE | 2018-04-22 16:56 | NUR ---
WOUND CARE EVALUATION NOTE: REASON FOR EVALUATION: PRESSURE ULCER INJURY STAGE 4 TO R/L ISCHIUM SKIN ASSESSMENT DONE ON THIS 57 Y/O FEMALE PATIENT ADMITTED TO [facility], PT. WAS AT [facility]. PT ADMITTED WITH INITIAL DIAGNOSIS OF BUTTOCKS WOUNDS/ PRESSURE ULCER INJURIES STAGE 4. PAST MEDICAL HISTORY INCLUDE OA, RA, ANEMIA, PRESSURE INJURIES AND AZ. ALL ABOVE INFORMATION OBTAINED FROM THE ADMISSION H&P. LABS ARE WBC 15.2, H/H 10.5/32.6, GLUCOSE 258 AND ALBUMIN 2.5. PATIENT IS AWAKE, FOLLOW DIRECTIONS. SKIN WARM AND DRY TO TOUCH, SKIN TURGOR GOOD. DEFORMATIVE FROM ELBOWS, WRISTS, FINGERS AND HIPS WITH CONTRACTURES NOTICE. CAPILLARY REFILLED <3 SEC X 10 TOES. TOENAILS ARE SHORT AND THICKENED, NO HAIR GROWTH, BILATERAL DORSAL PEDAL PULSES PRESENT. PLAN OF CARE DISCUSSED WITH PRIMARY RN AND PT. PT ABLE TO VERBALIZE UNDERSTANDING. COMORBIDITIES FOR WOUND HEALING AND FURTHER SKIN BREAKS: INFECTION, CHRONIC WOUND, LOW ALBUMIN LEVEL, ANEMIA AND DECREASE MOBILITY. INTEGUMENTARY: -R/L ELBOWS TO FOREARMS WITH PUMPS / NODULES AND MULTIPLE DRY SCABS WITH LARGEST ON RIGHT FOREARM 2X2 CM -COLORED TATTOO ABOVE SACRALCOCCXY AREA, SKIN INTACT. -RIGHT ISCHIUM (BUTTOCK) PRESSURE INJURY STAGE 4: 4X5X X3CM WITH UNDERMINING BETWEEN 12 O'CLOCK TO 3 O'CLOCK AND 4.5 CM DEEP TO 1 O'CLOCK. WOUND BED IS PINK, 100% GRANULATION TISSUE, SMALL AMOUNT OF SEROUS DRAINAGE, NO ODOR, NAHUN-WOUND SKIN INTACT, AND WOUND EDGE WELL DEFINED. PAIN 3/10. - LEFT ISCHIUM (BUTTOCK) PRESSURE INJURY STAGE 4: 4X4.5X X3.5CM WITH UNDERMINING BETWEEN 11 O'CLOCK TO 2 O'CLOCK AND 5 CM DEEP TO 12 O'CLOCK. WOUND BED IS PINK, 100% GRANULATION TISSUE, SMALL AMOUNT OF SEROUS DRAINAGE, NO ODOR, NAHUN-WOUND SKIN INTACT, AND WOUND EDGE WELL DEFINED. SURROUNDING NON-BLANCHABLE REDNESS 5X6 CM INDICATED FURTHER DAMAGE, NO PAIN -BUTTOCK GROOVE IAD REDNESS WITH 2.5X1CM, SKIN INTACT -BILATERAL LOWER EXTREMITIES WITH ERYTHEMA, +2 EDEMA PER-ANKLES, WARM TO TOUCH, SKIN INTACT RECOMMENDATIONS: -WOUND CULTURE TO L/R BUTTOCK WOUNDS -VENOUS US TO BLE -CLEANSE LEFT/RIGHT BUTTOCKS WOUND WITH NS. PAT DRY, APPLY THERAHONEY SHEET DRESSING, PACK WOUND TO UNDERMINING AND COVER WITH DRY DRESSING QD AND PRN IF SOILING. -CLEANSE BUTTOCK GROOVE WITH MILD SOAP AND WATER, PAT DRY, APPLY Z-GUARD, BIDWC AND PRN IF SOILING. -PAINT RIGHT AND LEFT UPPER EXTREMITIES MULTIPLE SCABS WITH BETADINE SOLUTION BIDWC AND LEAVE IT OPEN TO AIR -TURN AND REPOSITION PATIENT Q 2H -ASSESS AND MONITOR SKIN CONDITION DURING POSITION CHANGE, OFFLOAD LEFT AND RIGHT BUTTOCKS -OFFLOAD BILATERAL LOWER LEGS BY PLACING PILLOWS UNDER CALVES AT ALL TIMES, UNLESS OTHERWISE CONTRAINDICATED -PRESSURE REDISTRIBUTION SURFACE THERAPY -RD CONSULT -KEEP SKIN CLEAN AND DRY AT ALL TIMES. MAY APPLY BODY LOTION TO DRYNESS AREA. RECOMMENDATIONS DISCUSSED WITH PRIMARY RN AND DR. JOHNSON WILL FOLLOW UP PATIENT Q7- 10 DAYS AND PRN. PLEASE CONTACT WOUND CARE NURSE FOR ANY CONCERNS, QUESTIONS AND CHANGES IN SKIN CONDITION. Addendum: 04/22/18 at 1731 by Sangeetha Garces RN (Grace) SPOKE TO DR. JOHNSON R/T PELVIC CT RESULT, DR. JOHNSON WILL CONSULT SURGEON.
[2018-04-22] MEDS ORDERED: DEXTROSE 50% 50 ML SYR IVP PRN (17:40)
[2018-04-22] MEDS ORDERED: IBUPROFEN 800 MG TAB PO PRN (17:40)
[2018-04-22] MEDS: HYDROcodone/APAP 5/325 MG 1 TAB TAB PO PRN ×2 (17:41→23:34)
--- NOTE | 2018-04-22 18:09 | NUR ---
DR. JI CAME IN TO EVALUATE PT AT BEDSIDE, STATED NO I&D NEED FOR THE WOUND AT THIS TIME.
[2018-04-22 18:27] LABS: BARBITURATE, URINE NEG. ng/ml (NEG <=200); BENZODIAZEPINE, URINE NEG. ng/mL (NEG <=200); CANNABINOID, URINE NEG. ng/mL (NEG <=50); COCAINE, URINE NEG. ng/mL (NEG <=300); OPIATE, URINE POS. ng/mL (NEG <=2000); PHENCYCLIDINE SCREEN,URINE NEG. ng/mL (NEG <=25)
[2018-04-22 18:30] LABS: CHOL/HDL RATIO 2.6 (1-4.5); MAGNESIUM 1.8 mg/dL (1.8-2.4); PHOSPHORUS 4.5 mg/dL (2.5-4.9); THYROID STIMULATING HORMONE 0.38 uIU/mL (0.34-3.74)
--- NOTE | 2018-04-22 19:15 | NUR ---
REPORT GIVEN TO SPANISH TUTOR NURSE FOR CONTINUE OF CARE, PT IS IN STABLE CONDITION AT THIS TIME.
--- NOTE | 2018-04-22 19:30 | NUR ---
RECEIVED REPORT FROM DAYSHIFT NURSE AT BEDSIDE FOR CONTINUITY OF CARE. PT AAOX4. PT IS SLEEPING. IV NOTED RAC 20G NS 80ML/HR. PT HAS BESIDE COMMODE. BED LOWERED CALL LIGHT WITHIN REACH WILL CONTINUE TO MONITOR.
[2018-04-22] MEDS: glipiZIDE 5 MG TAB PO SCH (20:41)
[2018-04-22] MEDS: PIPER/TAZO 3.375GM/D5W PREMIX 50 ML IV SCH (20:42)
[2018-04-22] MEDS: BLOOD GLUCOSE MONITORING 1 DEV DEV FS SCH (20:42)
[2018-04-22] MEDS: INSULIN LISPRO SLIDING SCALE 100 UNITS/ML VIAL SUBQ PRN (20:49)
--- NOTE | 2018-04-22 21:00 | NUR ---
PT TOOK MEDS WELL. SHE NEEDS RE-ADJUSTING EVERY 30 MIN. USES CALL LIGHT ALOT.
[2018-04-22 22:01] VITALS: BP 114/63
[2018-04-22] MEDS ORDERED: FUROSEMIDE 40 MG/4 ML VIAL IVP SCH (23:10)
--- NOTE | 2018-04-22 23:30 | NUR ---
PT REQUESTING BENADRYL, NORCO AND DIAPER, DR LEON ORDERED LASIX. WILL CONTINUE TO MONITOR.
[2018-04-23 00:26] VITALS: BP 108/63
--- NOTE | 2018-04-23 02:00 | NUR ---
INSERTED FORBES CATHETER TO PREVENT URINE FROM ENTERING 2X L & R BUTTOCKS WOUND. WILL CONTINUE TO MONITOR.
[2018-04-23 04:00] VITALS: BP 120/78
--- NOTE | 2018-04-23 04:06 | NUR ---
WOUND DRESSING. PUT DRESSING ON WOUND WITH TAPE TO SECURE. NO THERAHONEY OR IMPACTING OF WOUND. WILL CONTINUE TO MONITOR.
[2018-04-23] MEDS: PIPER/TAZO 3.375GM/D5W PREMIX 50 ML IV SCH ×3 (04:49→21:40)
[2018-04-23] MEDS: HYDROcodone/APAP 5/325 MG 1 TAB TAB PO PRN ×5 (04:56→21:41)
[2018-04-23] MEDS: INSULIN LISPRO SLIDING SCALE 100 UNITS/ML VIAL SUBQ PRN ×4 (05:02→21:48)
[2018-04-23] MEDS: BLOOD GLUCOSE MONITORING 1 DEV DEV FS SCH ×4 (06:46→21:38)
--- NOTE | 2018-04-23 07:25 | NUR ---
GAVE REPORT TO DAYSHIFT NURSE FOR CONTINUITY AT BEDSIDE.
--- NOTE | 2018-04-23 07:27 | NUR ---
RECEIVED REPORT FROM TANK CAR REPAIRER NURSE AT BEDSIDE. PT A/O X4. LUNG SOUNDS ARE CLEAR. PT ON RA. IV ON R AC 20G WITH NS AT 100ML/HR. +2 PITTING EDEMA BI LATERALLY ON LOWER EXTREMITIES. BI LATERAL UPPER EXTREMITY ELBOW WOUNDS. BUTTOCKS PU BI LATERALLY. FORBES CATHETER IN PLACE. BED IN LOW POSITION, LOCKED AND SIDE RAILS UP X2. BOARD UPDATED. WILL CONTINUE TO MONITOR.
[2018-04-23 08:00] VITALS: BP 116/68
[2018-04-23] MEDS: metFORMIN 850 MG TAB PO SCH ×3 (08:36→21:57)
[2018-04-23] MEDS: FUROSEMIDE 40 MG/4 ML VIAL IVP SCH ×2 (08:36→17:00)
[2018-04-23] MEDS: LACTOBACILLUS RHAMNOSUS GG 1 EACH CAP PO SCH (08:37)
[2018-04-23] MEDS: GABAPENTIN 300 MG CAP PO SCH ×3 (08:37→17:40)
[2018-04-23] MEDS: glipiZIDE 5 MG TAB PO SCH ×2 (08:37→21:41)
[2018-04-23] MEDS: FOLIC ACID 1 MG TAB PO SCH (08:38)
[2018-04-23] MEDS: predniSONE 10 MG TAB PO SCH (08:38)
--- NOTE | 2018-04-23 08:45 | NUR ---
PATIENT HAS BEEN SCREENED AND CATEGORIZED HIGH NUTRITION RISK. PATIENT WILL BE SEEN WITHIN 1-2 DAYS OF ADMISSION. 04/23/18 04/24/[address]
--- NOTE | 2018-04-23 08:46 | NUR ---
ADMINISTERED MORNING MEDS. PT TOLERATED WELL. CHANGED DIET ORDERS. LATE TRAY WILL BE ARRIVING SHORTLY. WILL CONTINUE TO MONITOR.
[2018-04-23] MEDS ORDERED: METHOTREXATE 2.5 MG TAB PO SCH (09:00)
--- NOTE | 2018-04-23 09:00 | NUR ---
CALLED SECURITY TO BRING UP HER ELECTRIC WHEELCHAIR. PT IS REQUESTING TO SIT IN HER CHAIR.
[2018-04-23] MEDS: NACL 0.9% 1,000 ML IV SCH ×2 (09:25→19:25)
--- NOTE | 2018-04-23 09:40 | NUR ---
CALLED [facility] TO BRING UP LATE TRAY. INSTRUCTIONS: NO EGGS, NO DARK MEAT, NO PROCESSED CHEESE, NO SEAFOOD.
--- NOTE | 2018-04-23 10:10 | NUR ---
ASSISTED PT TO HER WHEELCHAIR. PT COMFORTABLE. TABLE IN FRONT OF HER. AWAITING HER LATE BREAKFAST. PT REQUESTED ANOTHER CUP OF COFFEE AND MORE CRACKERS. GAVE IT TO PT. WILL CONTINUE TO MONITOR PT. Addendum: 04/23/18 at 1027 by Vi Lawson RN EMPTIED 1300 ML CLEAR URINE FROM FORBES BAG.
[2018-04-23] MEDS ORDERED: INSULIN LANTUS 100 UNITS/ML 10 ML VIAL SUBQ SCH ×2 (10:15→11:00)
--- NOTE | 2018-04-23 10:25 | NUR ---
PT CONTINUOUSLY ASKS FOR COFFEE AND HOT WATER. DECAF GIVEN A COMPROMISE BUT PT WILL NOT COMPROMISE. HOT WATER STILL GIVEN. PT DOES NOT COMPROMISE AND IS NONCOMPLIANT. Addendum: 04/24/18 at 0256 by Kavon Schultz RN TIME ADDED WAS AT 2225.
[2018-04-23] MEDS ORDERED: ALBUTEROL SULFATE/IPRATROPIU 3 ML SOL IH PRN (10:35)
--- NOTE | 2018-04-23 11:11 | NUR ---
LAB CALLED TO NOTIFY PT REFUSED BLOOD DRAW.
--- NOTE | 2018-04-23 11:33 | NUR ---
SS IS WITH PT NOW. PT ALREADY FINISHED LATE BREAKFAST TRAY. ASKED FOR A 4TH CUP OF COFFEE. WILL CONTINUE TO MONITOR PT.
--- NOTE | 2018-04-23 11:40 | NUR ---
PT BS 577. MD NOTIFIED. PER MD GAVE 15 UNITS HUMALOG AND ORDERED LANTUS. LUNCH HAS ARRIVED. WILL CONTINUE TO MONITOR.
[2018-04-23 12:00] VITALS: BP 101/67
--- NOTE | 2018-04-23 12:00 | NUR ---
PT COMPLAINED ABOUT HER LUNCH. SHE STATED THAT SHE CANNOT HAVE SEAFOOD AND SHE GOT FISH. CALLED [facility] AND ASKED THEM TO BRING SOMETHING ELSE TO THE FLOOR. PT WAS UPSET AND AGITATED.
[2018-04-23] MEDS: LORazepam 1 MG TAB PO SCH ×2 (13:01→13:08)
--- NOTE | 2018-04-23 13:02 | NUR ---
AFTERNOON MEDS ADMINISTERED. PT TOLERATED WELL. PT REFUSED ATIVAN. WILL CONTINUE TO MONITOR.
--- NOTE | 2018-04-23 14:00 | NUR ---
PT REMOVED TELE MONITOR AND IS REFUSING TO WEAR IT. Addendum: 04/23/18 at 1440 by Miguelina Luna RN MD NOTIFIED. Addendum: 04/23/18 at 1513 by Vi Lawson RN PT BACK IN BED OF NOW. WILL CONTINUE TO MONITOR PT.
[2018-04-23] MEDS ORDERED: THERAHONEY WOUND DRESSING TP SCH (14:10)
[2018-04-23 14:37] LABS: BASOPHILS % (AUTO) 0.3 % (0.0-2.0); EOSINOPHILS % (AUTO) 0.3 % (0.0-4.0); HEMATOCRIT 34.2 % (36-48); LYMPHOCYTES # (AUTO) 1.3 K/uL (2.5-16.5); LYMPHOCYTES % (AUTO) 12.1 % (20.5-51.1); MEAN CORPUSCULAR HEMOGLOBIN 25 pg (27-31); MEAN CORPUSCULAR HGB CONC 32 g/dL (33-37); MEAN CORPUSCULAR VOLUME 77.2 fL (80-94); MONOCYTES # (AUTO) 0.4 K/uL (0.8-1.0); MONOCYTES % (AUTO) 3.7 % (1.7-9.3); NEUTROPHILS # (AUTO) 8.7 K/uL (1.8-7.7); NEUTROPHILS % (AUTO) 83.6 % (42.2-75.2); PLATELET COUNT (AUTO) 382 K/uL (140-450); RED BLOOD CELL COUNT(AUTO) 4.43 MIL/uL (4.20-5.40); RED CELL DISTRIBUTION WIDTH 23.5 % (11.6-13.7); WHITE BLOOD COUNT (AUTO) 10.4 K/uL (4.8-10.8)
--- NOTE | 2018-04-23 14:50 | NUR ---
04/23/18 RD INITIAL ASSESSMENT COMPLETED PLEASE REFER TO NUTRITION ASSESSMENT UNDER CARE ACTIVITY FOR ESTIMATED NUTRITIONAL NEEDS. 1. CONTINUE CCHO 60 GM DIET TOLERATED 2. RECOMMEND 2 PACKETS OF ESPERANZA Q D 3. PROVIDE DIET EDUCATION IN FOLLOW-UP 4. RD TO FOLLOW-UP 3-5 DAYS, MODERATE RISK YVONNE WHITMORE RD
[2018-04-23 14:53] LABS: MAGNESIUM 1.9 mg/dL (1.8-2.4); PHOSPHORUS 4.7 mg/dL (2.5-4.9)
[2018-04-23] MEDS ORDERED: THERAHONEY GEL 42.5 GM TP PRN (14:55)
[2018-04-23 15:03] LABS: ANION GAP 15.6 (8-16); POTASSIUM 4.6 mmol/L (3.5-5.1)
[2018-04-23 16:00] VITALS: BP 107/67
--- NOTE | 2018-04-23 16:25 | NUR ---
DUE TO FORBES LEAKAGE, FORBES REMOVED AND REPLACED. PAIN MEDICATION ADMINISTERED. WILL REEVALUATE FOR EFFECTIVENESS. PT NOW SITTING UP IN CHAIR. NO SIGNS OF DISTRESS.
--- NOTE | 2018-04-23 16:40 | NUR ---
IV INFILTRATED AND REQUESTED IV TO BE REMOVED. ATTEMPTED TO RESTART ANOTHER. FAILED AT STARTED, IV BUSTED. PT REFUSED ANOTHER ATTEMPT. PT VERY AGITATED AND UNCOOPERATIVE. WILL ASK CHARGE NURSE TO START AN IV.
--- NOTE | 2018-04-23 17:00 | NUR ---
KEEPS ASKING FOR COFFEE. COMES TO THE NURSING STATION ASKING FOR SNACKS. EXPLAINED TO PT THAT HER BS LEVEL IS OVER 400'S. WILL ASK MD IF ITS OK TO GIVE SNACKS. PER MD, NO SNACKS. AFTER INSULIN IS GIVEN AND WAIT FOR AN HOUR AND RECHECK BS. IF IT GOES DOWN SHE CAN HAVE A SNACK. PT IS UPSET. USES HER ELECTRIC WHEELCHAIR, COMES TO THE NURSING STATION, DOCUMENTING ROOM, AND GO IN AND OUT OF THE PRIVATE KITCHEN ON FLOOR. WE HAVE ASKED PT TO GO BACK TO THE ROOM. IF SHE DOESN'T WE WILL NEED TO CALL SECURITY.
--- NOTE | 2018-04-23 17:35 | NUR ---
EVENING MEDS ADMINISTERED. PT REFUSED METFORMIN. PER MD INSULIN COVERAGE, 15 UNITS, GIVEN. WILL CONTINUE TO MONITOR.
--- NOTE | 2018-04-23 18:10 | NUR ---
PT ROAMING THE HALLS, STOPPED AT NURSES DOCUMENTING ROOM, ARGUING ABOUT DINNER. SECURITY CALLED. PT IS DID NOT LIKE HER MEAL. SHE SAID SHE CAN'T EAT BROCCOLI OR THE SALAD. SHE WANTS A GRILLED CHICKEN SANDWICH WITH LETTUCE, TOMATOES, CO[place] CHEESE W/ [place]. SHE ALSO WANTED BAKED CHIPS, AND STRAWBERRY SHERBERT. I CALLED DIETARY AND LEFT MESSAGE. ASKED PT TO GO TO THE ROOM AND WAIT FOR FOOD. PT REFUSES TO GO BACK TO HER ROOM. SECURITY RECOMMENDATION: TAKE THE WHEELCHAIR BACK INTO STORAGE. WILL ENDORSE TO FARM EQUIPMENT ASSEMBLER NURSE.
--- NOTE | 2018-04-23 19:20 | NUR ---
ENDORSED PT TO HVAC MECHANIC NURSE FOR CONTINUITY OF CARE. PT IN STABLE CONDITION.
--- NOTE | 2018-04-23 19:40 | NUR ---
ATTEMPTED TO TAKE VITAL SIGNS, PT STATED WILL NOT LET ANYONE DO ANYTHING UNTIL SHE RECEIVED HER COFFEE AND FOOD THAT WAS DEMANDED FROM AM SHIFT.
--- NOTE | 2018-04-23 20:15 | NUR ---
PT COMPLAINS THAT SHE REQUESTED FOOD FROM A MAN DURING THE AM SHIFT AND IT NEVER CAME. SHE DEMANDED THAT SHE GET THE FOOD THAT SHE AND HER INSURANCE PAYS FOR.
--- NOTE | 2018-04-23 21:21 | NUR ---
REPORT RECEIVED FROM AM NURSE. PT IN STABLE CONDITION. AAOX2. HEART SOUNDS NORMAL. LUNG SOUNDS CLEAR. BOWEL SOUNDS PRESENT X4 QUADRANTS. IV SITE DC DURING AM SHIFT. SKIN WARM, DRY, NOT INTACT DUE TO OPEN WOUNDS ON THE LEFT AND RIGHT BUTTOCK, AND WOUNDS ON THE LEFT AND RIGHT ARM. INTRODUCED SELF TO PT AND BOARD UPDATED. BED LOCKED IN LOW POSITION. CALL MARTINI WITHIN REACH. WILL CONTINUE TO MONITOR. Addendum: 04/24/18 at 227 by Kavon Schultz RN REPORT RECEIVED AT 1920.
--- NOTE | 2018-04-23 21:30 | NUR ---
NEW IV SITE INSERTED BY ELLIE HOWELL. 1 ATTEMPT IV SITE ON RIGHT WRIST 22G. PT TOLERATED WELL.
--- NOTE | 2018-04-23 21:45 | NUR ---
PT ASKED FOR PAIN MEDICATION. NORCO WAS PULLED OUT OF PYXIS. PT STATES SHE DOES NOT WANT THE NORCO YET BUT WANTS MORPHINE INSTEAD. NORCO HAD BEEN OPENED. NORCO TAKEN BACK TO [facility] TO BE WASTED. PETER HOWELL WITNESSED WASTE.
--- NOTE | 2018-04-23 21:45 | NUR ---
PM MEDS GIVEN. PT TOLERATED WELL. MEDICATION OVERRIDE FOR METFORMIN. PT STATES SHE ALWAYS TAKEN TOGETHER BECAUSE IT WORKS BEST THAT WAY.
--- NOTE | 2018-04-23 21:45 | NUR ---
ATTEMPTED TO GET VITAL SIGNS BUT PT STATES, WILL NOT ALLOW VS TO BE TAKEN UNTIL DONE WITH DINNER. Addendum: 04/23/18 at 2317 by Kavon Schultz RN TIME OF THIS NOTE 3 NEW IV SITE NEEDED FOR ABX THERAPY. PT STATES WILL NOT ALLOW ANYONE TO DO IT UNLESS THEY ARE, "VERY EXPERIENCED."
[2018-04-23] MEDS: MORPHINE SULFATE 2 MG/ML SYR IVP PRN (21:57)
--- NOTE | 2018-04-23 21:57 | NUR ---
NORCO GIVEN FOR PAIN 04/18. PT TOLERATED WELL. Addendum: 04/24/18 at 0243 by Kavon Schultz RN MORPHINE SULFATE GIVEN. NOT NORCO.
--- NOTE | 2018-04-23 22:30 | NUR ---
PT COMPLAINS THAT SHE IS STILL HUNGRY. SHE DEMANDS MORE FOOD, ESPECIALLY OMARI CRACKERS, MILK, CEREAL, AND COFFEE. DECAF COFFEE WAS GIVEN A COMPROMISE, BUT OMARI CRACKERS WITH MILK AND CEREAL WERE NOT GIVEN DUE TO UNCONTROLLED DIABETES. MORNING SHIFTS BS LEVELS WERE 577 AND 409. BS AT 2100 WAS 310, 8 UNITS INSULIN GIVEN. MD IN TO EDUCATE PT ABOUT DIET. MD AGREED AND PT AGREED TO HAVE TURKEY SANDWICH AND A CHOCOLATE PUDDING. PT BECOMES AGITATED AND INSISTS ON GETTING 6 PIECES OF OMARI CRACKERS. MD SAYS IF WE CANNOT COME TO AN AGREEMENT THEN YOU WILL GET NOTHING. THE PT BECOMES ANGRY AND YELLS AT MD STATING, "WHO THE HELL DO YOU THINK YOU ARE TALKING TO ME LIKE THAT? NO ONE TALKS TO ME THAT WAY." PT GETS UP AND TELLS ME TO DISCONNECT HER IV. I ASKED HER WHERE SHE IS GOING. SHE STATES THAT IT DOESNT MATTER AND JUST DO WHAT I ASKED. CHARGE NURSE NOW INVOLVED. PT NONCOMPLIANT AND COMBATIVE.
--- NOTE | 2018-04-23 22:50 | NUR ---
PT DOWNGRADE TO MED/SURGE DUE TO NONCOMPLIANCE NOT WEARING THE MACHINE COMPOSITOR.
[2018-04-23] MEDS ORDERED: HALOPERIDOL IM 5 MG/ML VIAL IM PRN (22:55)
--- NOTE | 2018-04-24 | NUR ---
VS ARE TAKEN, PT IS STILL VERY COMBATIVE AND DEMANDING. PT REQUIRES TOTAL ASSIST ON EVERYTHING THAT NEEDS TO BE DONE.
[2018-04-24] MEDS: HYDROcodone/APAP 5/325 MG 1 TAB TAB PO PRN ×2 (01:18→12:12)
--- NOTE | 2018-04-24 01:18 | NUR ---
NORCO GIVEN FOR PAIN 04/18. PT TOLERATED WELL. WILL CONTINUE TO MONITOR.
--- NOTE | 2018-04-24 01:30 | NUR ---
PT DRESSINGS CHANGED ON LEFT AND RIGHT ELBOW. CLEANED WITH BETADINE AND NEW STRATASORB PLACED. LEFT AND RIGHT BUTTOCK DRESSING ALSO CHANGED. CLEANED WITH BETADINE, THERAHONEY GEL, AND NEW STRATASORB PLACED. PT TOLERATED WELL. WILL CONTINUE TO MONITOR.
--- NOTE | 2018-04-24 01:45 | NUR ---
PT PLACED IN BED DEMANDING TO GET OUT BECAUSE SHE FEELS A VIBRATION COMING FROM BED AND IT IS BOTHERING HER. SHE WAS EDUCATED ON THE BED BEING A WOUND BED TO HELP OFFLOAD THE PRESSURE ULCERS ON HER LEFT AND RIGHT BUTTOCK. PT STATES SHE DOES NOT CARE AND TO GET HER OFF THE BED RIGHT NOW. CNAS HELPED HER BACK TO CHAIR. PT VERY COMBATIVE AND NONCOMPLIANT.
--- NOTE | 2018-04-24 02:00 | NUR ---
PT CONTINUOUSLY COMES IN AND OUT OF ROOM ON WHEELCHAIR.
--- NOTE | 2018-04-24 03:00 | NUR ---
PT ASLEEP IN CHAIR. CHEST EXPANSION VISIBLE. WILL CONTINUE TO MONITOR.
--- NOTE | 2018-04-24 04:30 | NUR ---
PT ASLEEP IN THE HALLWAY. CHEST EXPANSION VISIBLE. WILL CONTINUE TO MONITOR.
[2018-04-24] MEDS: PIPER/TAZO 3.375GM/D5W PREMIX 50 ML IV SCH ×3 (05:26→18:39)
[2018-04-24] MEDS: BLOOD GLUCOSE MONITORING 1 DEV DEV FS SCH ×4 (05:31→21:21)
[2018-04-24] MEDS: INSULIN LISPRO SLIDING SCALE 100 UNITS/ML VIAL SUBQ PRN ×4 (05:39→21:01)
--- NOTE | 2018-04-24 06:00 | NUR ---
PT AWAKE IN HER ROOM ON HER WHEELCHAIR. PT STILL VERY COMBATIVE.
--- NOTE | 2018-04-24 07:10 | NUR ---
REPORT GIVEN TO AM NURSE. PT IN STABLE CONDITION.
[2018-04-24 08:00] VITALS: BP 102/55
--- NOTE | 2018-04-24 08:10 | NUR ---
PT WAS OUT OF ROOM IN WHEELCHAIR, SAID SHE WANTED COFFEE AND WANTED TO GO BACK TO BED. GAVE HER COFFEE AND BREAKFAST TRAY. PT WAS ARGUING THAT WE DID NOT PREPARE HER FOOD RIGHT. OFFERED TO HEAT UP TRAY. PT ARGUED BACK REFUSED VS, AND TOOK FOOD AND WENT OUT OF ROOM TO KITCHEN. SECURITY AND FOOD SERVICE ASSISTANT WAS CALLED AND SPOKE WITH PT. PT WENT BACK TO ROOM.
[2018-04-24] MEDS ORDERED: INSULIN LANTUS 100 UNITS/ML 10 ML VIAL SUBQ SCH ×2 (09:00)
[2018-04-24] MEDS: predniSONE 10 MG TAB PO SCH (09:14)
[2018-04-24] MEDS: glipiZIDE 5 MG TAB PO SCH ×2 (09:14→16:33)
[2018-04-24] MEDS: LACTOBACILLUS RHAMNOSUS GG 1 EACH CAP PO SCH (09:14)
[2018-04-24 09:16] LABS: BASOPHILS # (AUTO) 0.1 K/uL (0.00-0.22); BASOPHILS % (AUTO) 0.5 % (0.0-2.0); EOSINOPHILS # (AUTO) 0.1 K/uL (0-0.4); EOSINOPHILS % (AUTO) 0.9 % (0.0-4.0); HEMATOCRIT 32.2 % (36-48); HEMOGLOBIN 10.7 g/dL (12.0-16.0); LYMPHOCYTES # (AUTO) 2.5 K/uL (2.5-16.5); LYMPHOCYTES % (AUTO) 21.9 % (20.5-51.1); MEAN CORPUSCULAR HEMOGLOBIN 25 pg (27-31); MEAN CORPUSCULAR HGB CONC 33 g/dL (33-37); MONOCYTES # (AUTO) 0.5 K/uL (0.8-1.0); NEUTROPHILS # (AUTO) 8.4 K/uL (1.8-7.7); NEUTROPHILS % (AUTO) 72.7 % (42.2-75.2); PLATELET COUNT (AUTO) 348 K/uL (140-450); RED BLOOD CELL COUNT(AUTO) 4.24 MIL/uL (4.20-5.40); WHITE BLOOD COUNT (AUTO) 11.6 K/uL (4.8-10.8)
[2018-04-24] MEDS: FOLIC ACID 1 MG TAB PO SCH (09:24)
[2018-04-24] MEDS: FUROSEMIDE 40 MG/4 ML VIAL IVP SCH ×2 (09:26→16:44)
[2018-04-24] MEDS: metFORMIN 850 MG TAB PO SCH ×2 (09:27→16:34)
--- NOTE | 2018-04-24 09:30 | NUR ---
MEDICATED AND APPLIED NEW DRESSING TO BUTTOCK WOUND. NO ACTIVE DRAINAGE NOTED.
[2018-04-24] MEDS: MORPHINE SULFATE 2 MG/ML SYR IVP PRN (09:36)
--- NOTE | 2018-04-24 09:42 | NUR ---
PT REFUSED HEPARIN SUBQ. BENEFIT AND ADVERSE-EFFECTS EXPLAINED. STILL REFUSED MEDICATION.
[2018-04-24 09:53] LABS: ANION GAP 17.4 (8-16); CARBON DIOXIDE 22.5 mmol/L (21-32); CREATININE 0.6 mg/dL (0.6-1.3); POTASSIUM 3.9 mmol/L (3.5-5.1)
[2018-04-24 09:56] LABS: MAGNESIUM 1.7 mg/dL (1.8-2.4); PHOSPHORUS 3.9 mg/dL (2.5-4.9)
[2018-04-24] MEDS: GABAPENTIN 300 MG CAP PO SCH ×3 (10:04→16:33)
[2018-04-24] MEDS: NACL 0.9% 1,000 ML IV SCH ×2 (10:04→12:11)
--- NOTE | 2018-04-24 11:30 | NUR ---
PT REFUSED TO BE IN FORBSE CATHETER. DR. JOHNSON MADE AWARE SAID OKAY TO REMOVE CATHETER. . WILL REMOVE CATHETER PER PT REQUEST AND DR. MACHADO.
--- NOTE | 2018-04-24 14:53 | NUR ---
PT REFUSED TO SIGN CONSENT FOR PICC LINE INSERTION. EXPLAINED BENEFITS AND ADVERSE -EFFECTS. STILL REFUSED TO HAVE PICC LINE AND SIGN CONSENT DR. CASTILLO MADE AWARE.
[2018-04-24 16:00] VITALS: BP 91/55
[2018-04-24] MEDS ORDERED: MAG SULF 2000 MG/WATER PREMIX 50 ML IV SCH (16:00)
--- NOTE | 2018-04-24 18:55 | NUR ---
PT REFUSED TO HAVE IV INFUSION. SAID SHE WANTED TO EAT WITHOUT IT ON. SITTING IN WHEELCHAIR EATING SNACK RIGHT NOW.
--- NOTE | 2018-04-24 19:15 | NUR ---
ENDORSED PT TO SECURITY ADMINISTRATOR NURSE CHRIS AT BEDSIDE FOR CONTINUITY OF CARE. PT IN STABLE CONDITION.
--- NOTE | 2018-04-24 19:17 | NUR ---
RECEIVED REPORT FROM DAY SHIFT NURSE. PT SITTING IN THE WHEELCHAIR, EATING. NO RESP DISTRESS NOTED. NO C/O PAIN. IV TO RIGHT WRIST, PATENT AND INTACT. PT HAS DRESSING TO BOTH ELBOWS, CLEAN, DRY AND INTACT. SAFETY PRECAUTION IN PLACE. CALL LIGHT WITHIN REACH.
--- NOTE | 2018-04-24 19:36 | NUR ---
ASSESSED PATIENT WHO WAS SITTING IN HER WHEELCHAIR AND EATING DINNER WHEN ENTERED ROOM. PATIENT ON ROOM AIR AND NO RESPIRATORY DISTRESS SEEN OR ADVISED FROM RN WHO WAS AT THE DOOR GIVING REPORT TO THE NEXT SHIFT. B/S: CLEAR BILATERALLY. SAT 96.
--- NOTE | 2018-04-24 21:00 | NUR ---
PT REFUSED HEPARIN SUBQ. DR. AMEZQUITA MADE AWARE. PT IN THE WHEELCHAIR OUTSIDE THE ROOM AND REFUSED TO GO TO HER ROOM.
--- NOTE | 2018-04-24 22:20 | NUR ---
2 TRIAGE REGISTER NURSE'S ASSISTED PT TO BATHROOM. PT COMPLAINING AND YELLING ON 2 TRIAGE REGISTER NURSE'S BEC SHE WANTS HER DIAPER TO BE CHANGED FAST BUT THE WHEELCHAIR IS BLOCKING THE BATHROOM DOOR AND THEY NEED TO CHANGE THE POSITION OF THE WHEELCHAIR. EXPLAINED TO PT BUT DOESN'T WANT TO LISTEN AND KEEPS ON YELLING AND SAYING BAD WORDS. PT ASSISTED BACK TO BED.
[2018-04-25] VITALS: BP 102/66
[2018-04-25] MEDS: PIPER/TAZO 3.375GM/D5W PREMIX 50 ML IV SCH ×4 (00:25→18:26)
[2018-04-25] MEDS: HYDROcodone/APAP 5/325 MG 1 TAB TAB PO PRN ×3 (00:45→16:42)
--- NOTE | 2018-04-25 00:50 | NUR ---
DRESSING CHANGED TO LEFT AND RIGHT BUTTOCKS. REPOSITIONED PT.
[2018-04-25] MEDS: NACL 0.9% 1,000 ML IV SCH (01:25)
--- NOTE | 2018-04-25 03:15 | NUR ---
PT SLEEPING BUT EASILY AROUSABLE. RESP EVEN AND UNLABORED. NO S/S OF PAIN. SAFETY PRECAUTION IN PLACE. CALL LIGHT WITHIN REACH.
[2018-04-25] MEDS: INSULIN LISPRO SLIDING SCALE 100 UNITS/ML VIAL SUBQ PRN ×3 (06:00→21:53)
--- NOTE | 2018-04-25 06:12 | NUR ---
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 SHE SAID I WAS NOT LISTENING TO HER BUT I WAS. THEN SHE SAID BAD WORDS TO ME. PT IS VERBALLY ABUSIVE. I STEPPED OUT OF THE ROOM. Addendum: 04/25/18 at 0734 by Slime George RN REPORTED INCIDENT TO DR. AMEZQUITA, CHARGE NURSE AND WINDOWS TECHNICAL SPECIALIST. WINDOWS TECHNICAL SPECIALIST SAID NOT TO GO TO PT'S ROOM ANYMORE.
--- NOTE | 2018-04-25 07:00 | NUR ---
ENDORSED PT TO DAY SHIFT NURSE. PT IN STABLE CONDITION.
--- NOTE | 2018-04-25 07:01 | NUR ---
RECEIVED REPORT FROM WEB METHODS DEVELOPER RN. PATIENT IS AAOX4, HAS NO SIGNS AND SYMPTOMS OF ACUTE DISTRESS NOTED AT THIS TIME. PATIENT IS CURRENTLY ON MOTORIZED WHEELCHAIR AT THE NURSES STATION. HAS IV TO THE RIGHT WRIST 22G. SIGHT IS CLEAN, DRY, PATENT AND INTACT. BED IN LOWEST POSITION, SIDE RAILS UP X2, CALL LIGHT WITHIN REACH. WILL CONTINUE TO MONITOR.
[2018-04-25] MEDS: BLOOD GLUCOSE MONITORING 1 DEV DEV FS SCH ×4 (07:03→21:49)
[2018-04-25 08:00] VITALS: BP 104/55
--- NOTE | 2018-04-25 08:20 | NUR ---
PATIENT REQUESTED DRESSING CHANGE TO BE DONE. APPLIED DRESSING TO RIGHT AND LEFT BUTTOCKS. PATIENT STATED SHE HAD SOME PAIN, WILL GIVE PAIN MEDICATION.
[2018-04-25] MEDS: glipiZIDE 5 MG TAB PO SCH ×2 (08:42→16:41)
[2018-04-25] MEDS: LACTOBACILLUS RHAMNOSUS GG 1 EACH CAP PO SCH (08:42)
[2018-04-25] MEDS: FOLIC ACID 1 MG TAB PO SCH (08:42)
[2018-04-25] MEDS: metFORMIN 850 MG TAB PO SCH ×2 (08:42→16:41)
[2018-04-25] MEDS: predniSONE 10 MG TAB PO SCH (08:42)
[2018-04-25] MEDS: INSULIN LANTUS 100 UNITS/ML 10 ML VIAL SUBQ SCH (08:57)
[2018-04-25] MEDS: FUROSEMIDE 40 MG/4 ML VIAL IVP SCH ×2 (09:00→16:42)
[2018-04-25] MEDS: GABAPENTIN 300 MG CAP PO SCH ×3 (10:55→16:41)
--- NOTE | 2018-04-25 13:15 | NUR ---
ASSISTED PATIENT TO THE TOILET. WHEN TAKING OFF DIAPER PATIENT GOT ANGRY AND STATED "WHAT THE FK IS WRONG WITH YOU, YOU DIDN'T PUT IT DOWN FAST ENOUGH GOD DMARY!" "NOW MY DIAPER IS ALL WET". THERE WAS NO EVIDENCE OF SOILING ON THE DIAPER.
--- NOTE | 2018-04-25 13:30 | NUR ---
PATIENT IS REFUSING TO LAY IN BED FOR A WHILE EVEN WHEN GIVEN EDUCATION THAT SHE NEEDS TO LET HER PRESSURE WOUNDS BREATH A LITTLE BIT.
--- NOTE | 2018-04-25 15:10 | NUR ---
ASSISTED PATIENT TO THE TOILET. PATIENT VERBALIZING THAT SHE IS BEING NEGLECTED, AND I DON'T KNOW HOW TO DO MY JOB. THAT THE PEOPLE THAT WORK HERE AREN'T COMPETENT, THEY PROBABLY DON'T GET PAID MUCH.
[2018-04-25 16:00] VITALS: BP 116/62
--- NOTE | 2018-04-25 19:27 | NUR ---
RECEIVED ENDORSEMENT FROM DYLAN HOWELL DAY SHIFT NURSE. PT IN ELECTRIC W/C IN STABLE CONDITION.
--- NOTE | 2018-04-25 19:27 | NUR ---
ENDORSED PATIENT TO NEEDLE PUNCH OPERATOR RN FOR CONTINUITY OF CARE. PATIENT IN STABLE CONDITION.
--- NOTE | 2018-04-25 20:00 | NUR ---
PT NILE UP IN ELECTRIC WHEEL CHAIR AND ASKED FOR W/C TO BE PLUGGED IN TO WALL. V/S DONE AT THIS TIME AND ARE FOLLOWS: T 99.1 P 114 R 20 B/P 102/64 O2 97% ON R/A. PT THEN ASKED TO BE REPOSITIONED. WHICH WAS DONE BY STAFF.
--- NOTE | 2018-04-25 20:30 | NUR ---
PT CAME TO PRIMARY NURSE IN HER ELECTRIC W/C AND ASKED TO HAVE ASSISTANCE IN THE BATHROOM. PT BECAME AGGITATED WHEN PRIMARY NURSE HAD TO GO TO NURSING STATION TO ANSWER PHONE CALL REGARDING ANOTHER PT. PT WAS SAFELY TRANSFERRED TO TOILET AND WAS ASKED TO SAT HERE AND USE CALL MARTINI WHEN FINISHED AND SHE BISI BE ASSISTED BACK TO CHAIR. PT WAS VERY UPSET AND ACCUSED NURSE OF BEING "UNPROFFESSIONAL". PT IS ALERT AND ORIENTED TO HER OWN ABILITY AND WAS UPSET BECAUSE NURSE DID NOT STAY IN ROOM WITH HER . LACIE PHILLIPS WAS SENT IN ROOM TO ASSIST PT BACK FORM TOILET TO CHAIR. PT BECAME VERBALLY ABUSIVE TO AID ASKING WHY SHE IS BY HER TRAY OF FOOD AND SHE IS "UNPROFFESSIONAL ". AND THAT HSE DOESNT KNOW WHAT SHE IS DOING. SENIOR TECHNICAL MANAGER DID NOT TAKE ANYTHING FROM HER TRAY OF FOOD.
--- NOTE | 2018-04-25 21:30 | NUR ---
PRIMARY NURSE RETURNED TO PT TO GIVE HER MEDICATIONS THAT WAS DUE. PT WAS ASKING IF SHE RECEIVED EVERYTHING FORM THE PREVIOUS SHIFT THAT SHE SHOULD HAVE. THEN SHE WENT ON TO DICTATE TO PRIMARY NURSE HOW SHE WANTED TO TAKE HER MEDICATION AND THAT SHE WANTED HER WOUND CARE AND PAIN MEDS FIRST EVEN THOUGH SHE WAS COMPLAING THAT SHE FELT HER MEDS WERE NOT GIVEN IN A TIMELY MANNER. PT WAS ASSURED THAT SHE WAS GIVEN ALL THE MEDS DUE FROM THE LAST SHIFT, AND THAT HER MEDICATION ARE BEING ADMINISTRATED ON TIME. PT STILL INSISTED THAT SHE GET HER WOUND CARE AND PAIN MEDICATION FIRST. PRIMARY NURSE GATHERED WITNESSES REGARDING HER CARE DUE TO PT BECOMING ACCUSATORY OF NOT RECEIVING APPROPRIATE CARE. PT WAS NOTED TO HAVE HER CELL PHONE ON AND POSSIBLE RECORDING HER CONVERSATIONS WITH THE NURSES, PT APPEARED TO BE TRYING TO TAKE PICTURES WELL. PT WAS INFORMED BY STAFF THAT THIS IS AGAINST OUR POLICY AND THAT WE DO NOT CONSENT TO OUR PICTURES OR RECORDINGS FORM HER PHONE. PT WAS THEN ASSISTED TO BED FOR WOUND CARE AT THIS TIME AND WAS GIVEN HER REQUESTED PRN MORPHINE FOR 9/10 PAIN IN BACK, SACRAL AND JOINT PAIN. PT WAS ARGUING WITH OTHER STAFF NURSES ABOUT GETTING HER DUE FINGERSTICK AND HAD ACCUSED STAFF NURSES OF HURTING HER. STAFF NURSES EXPLAINED THAT THESE DIABETIC NEEDLES PUNCTURE THE SKIN FOR A BLOOD DROP TO DO A FINGER GLUCOSE READING AND THAT IT MAY BE A LITTLE BIT PAIN FUL BUT THERE IS NO WAY TO GAUGE THE NEEDLE. AT THIS TIME PT WAS GIVEN HER MORPHINE VIA IV AND WAS FLUSHED. PT IMMEDIATELY ACCUSED NURSE OF NOT GETTING HER PAIN MEDICATION. [employer] SAID THAT THEY HAD WITNESSED THE PRIMARY NURSE GIVING HER THE MEDICATION. PT SAID THAT DOENST IT COUNT THAT SHE IS A PT BUT PRIMARY NURSE REPLIED THAT OF COURSE THE PT MATTERS BUT THAT SHE HAS THE WITNESS OF 2 NURSES THAT SHE GAVE THE MEDICATION AND THAT COUNTS. PT WAS STILL ON THE BED AT THIS TIME AND WANTED AN INCONTINENT DIAPER TO WEAR. PT WAS INFORMED THAT WE DO NOT CARRY THIS ITEM ON THE FLOOR A SUPPLY. PT INSISTED THAT WE HAVE THIS ITEM . PT SAID THAT SHE COULD USE THIS JAMES AN INCONTINET DIAPER AND HAVE IT TAPPED UP. NURSE DID REQUESTED AFTER WOUND CARE AND SHE WAS GIVEN A DISPOSABLE UNDERWEAR THAT SHE WORE OVER THE CHUCKS. PT HAD PHONE OUT AND TOOK A PICTURE OF THE CHUCKS. PT AGAIN WAS REMINDED NOT TAKE PICS OR RECORDINGS OF STAFF AND THAT THIS IS AGAINST OUR POLICY HERE. PT SAID THAT SHE WAS TAKING A PICTURE OF HERSELF BUT WAS CLEARLY TAKING A PICTURE OF HER CHUCKS AND DISPOSABLE UNDERWEAR. PRIMARY NURSE LEFT THE ROOM AND PT WAS WITNESSED ROCKING HER LEGS UP AND BACKTO TRY TO ROCK UP THE MOTION TO SIT UP. PT WAS TOLD THAT SHE WOULD BE ASSISTED UP AND TO WAIT FOR STAFF HELP. STAFF THEN LOWERED BED AND ASSISTED PT TO HER W/C.
[2018-04-25] MEDS: MORPHINE SULFATE 2 MG/ML SYR IVP PRN (21:44)
[2018-04-26] MEDS: PIPER/TAZO 3.375GM/D5W PREMIX 50 ML IV SCH
[2018-04-26] MEDS: HYDROcodone/APAP 5/325 MG 1 TAB TAB PO PRN ×2 (00:43→08:20)
--- NOTE | 2018-04-26 00:49 | NUR ---
PT C/O THAT TRANSFER TO TOILET IS WRONG. PT IS PULLING BACK ON NURSE TRYING TO STABILIZE PT TO TRANSFER TO TOILET, PT ALMOST GOT TO TOILET AND THEN DECIDED THAT SHE CANT TRUST NURSE AND NURSE DOESNT KNOW WHAT SHE IS DOING. PT INSISTED THAT SHE WILL FIND SOMEONE TO HELP ADEN TO REST ROOM PT IS ZOOMING AROUND ON HER ELECTRIC W/C AND INSITS ON USING THE BATHROOM BEFORE SHE CAN TAKE HER IV MEDICATION WHICH IS DUE NOW.
--- NOTE | 2018-04-26 01:00 | NUR ---
PT REFUSED ZOSYN IV ABT AFTER BEING ASKED IF SHE NOW WANTED THE MEDICATION AFTER SHE WENT TO THE BATHROOM. PT CONTINUED TO DECLINE THE IV ABT EVEN AFTER IV WAS SET UP BY ANOTHER NURSE WHO ASKED IF SHE WANTED THE MEDICATION. PT ALSO DECLINED VITAL SIGNS. PT REFUSES TO ACKNOWLEDGE PRIMARY NURSE. SHE CONTINUES TO BE RUSDE MANIPUILATIVE AND DISRESPECTFULL TOWARD STAFF, ONCE AGAIN SHE WAS REMINDED NOT TO RECORD OR TAKE PICTURES OF STAFF THAT IT IS AGAINST OUR POLICY.
--- NOTE | 2018-04-26 02:30 | NUR ---
CHARGE NURSE ELLIE HAD TO CHANGE PT BED FROM WOUND BED TO REGULAR BED, DUE TO RECEIVING PT THAT IS NON AMBULATORY WITH A SACRAL WOUND. PT NEVER SLEEPS IN HER BED OR RESTS IN HER BED SHE ONLY TRANSFERS TO HER BED TO HAVE WOUND CARE DONE. CHARGE NURSE EXPLAINED THE NECESSITY FOR PT GOING INTO RM 118. PT HAD A FIT AND STARTED YELLING THAT" HER INSURANCE PAYS FOR THIS BED AND THAT THE CHARGE NURSE CANNOT DO THIS." " i AM GOING TO CALL MY INSURANCE COMPANY! "PT REFUSED TO GO BACK TO HER ROOM AND SPENT THE NEXT SEVERAL MINUTES RIDING AROUND ON HER MOTORIZED SCOOTER.
--- NOTE | 2018-04-26 04:50 | NUR ---
JACQUELINE MEDELLIN, WAS CLEANING IN PT ROOM, WHEN PT DROVE HER ELECTRIC W/C TOWARDS HER TO TRAP HER IN THE CORNER OF THE ROOM. PT WAS UPSET THAT PRINTING SHOP SUPERVISOR WAS CLEANING UP THE GARBAGE IN HER ROOM. SHE TOLD THE PRINTING SHOP SUPERVISOR TO GET OUT AND WHAT ARE YOU DOING HERE, THIS IS HER ROOM AND THE PRINTING SHOP SUPERVISOR SAID NO, THIS IS THE HOSPITAL ROOM BUT THE PT SAID MY INSURANCE PAYS FOR THIS.
--- NOTE | 2018-04-26 05:22 | NUR ---
SECURITY ARRIVED TO TELL PT THAT SHE NEEDS TO GO BACK TO HER ROOM. PT REFUSED AND CONTINUED TO MOVE HER MOTORIZED W/C AWAY FROM THE GAMING ASSOCIATE, PT THEN ASKED A STAFF NURSE TO HELP HER PACK HER THINGS. SHE STARTED GATHERING HER STUFF FROM THE ROOM INTENT ON LEAVING THE HOSPITAL AMA. PT WAS ASKED TO SIGN AMA BUT SHE REFUSED TO DO SO. PT CONTINUE TO RIDE HER SCOOTER OFF THE FLOOR. PRIMARY NURSE AND OTHER STAFF NURSE CAUGHT UP WIT HER TO ASK IF THEY COULD TAKE OUT THE IV AND SHE TOLD THEM TO GET AWAY FROM HER.
--- NOTE | 2018-04-26 05:25 | NUR ---
DR AMEZQUITA MADE AWARE OF PT ELOPEMENT. PT WAS SEEN LEAVING THE BUILDING BUT NOT THE PREMESIS,. DR AMEZQUITA MADE AWARE.
--- NOTE | 2018-04-26 05:52 | NUR ---
DR AMEZQUITA FOUND PT IN LOBBY
--- NOTE | 2018-04-26 07:00 | NUR ---
pt showed up on floor at 0700. in w/c with iv site intact.
--- NOTE | 2018-04-26 07:20 | NUR ---
report given to day shift nurse for transfer of care.
--- NOTE | 2018-04-26 07:21 | NUR ---
PATIENT REPORT RECEIVED FROM SALES MARKET LEADER NURSE. PATIENT IN HER WHEELCHAIR ON THE FLOOR. PATIENT HAD ELOPED EARLIER TO THE FRONT LOBBY, ACCOMPANIED BY SECURITY. PATIENT ALERT AND AWAKE REQUESTING FOR WATER. RN AWARE AND GAVE IT TO PATIENT. IV INTACT AND SALINE LOCKED, PATIENT REFUSED IVF. RESPIRATIONS EVEN AND UNLABORED. SAFETY PRECAUTION IN PLACE, CALL LIGHT WITHIN REACH, WILL CONTINUE TO MONITOR PATIENT.
[2018-04-26] MEDS: NACL 0.9% 1,000 ML IV SCH ×3 (07:25→08:30)
--- NOTE | 2018-04-26 07:40 | NUR ---
DOCTORS MAKING THEIR ROUNDS, PATIENT WAS IN THE BATHROOM SO DID NOT GET A CHANCE TO SPEAK TO THE DOCTORS. PATIENT REQUESTING TO SPEAK TO THE DOCTORS. RN INFORMED HER MESSAGE WILL BE PASSED ON. PATIENT ASSISTED TO THE BATHROOM PER HER REQUEST, PATIENT VOIDED. PATIENT CLEANED AND CHANGED INTO HER OWN CLOTHING, HER STOVALL AND YELLOW SHIRT, HER OWN DIAPER, DISPOSABLE UNDERWEAR AND HER OWN SHORTS. SAFETY PRECAUTION IN PLACE, CALL LIGHT WITHIN REACH. WILL CONTINUE TO MONITOR PATIENT.
[2018-04-26 08:00] VITALS: BP 134/59
--- NOTE | 2018-04-26 08:10 | NUR ---
PATIENT REQUESTED HER WHEELCHAIR BE PLUGGED IN, IT WAS DONE. PATIENT EATING BREAKFAST. SAFETY PRECAUTION IN PLACE, CALL LIGHT WITHIN REACH, WILL CONTINUE TO MONITOR PATIENT.
[2018-04-26] MEDS: metFORMIN 850 MG TAB PO SCH (08:19)
[2018-04-26] MEDS: FOLIC ACID 1 MG TAB PO SCH (08:20)
[2018-04-26] MEDS: LACTOBACILLUS RHAMNOSUS GG 1 EACH CAP PO SCH (08:20)
[2018-04-26] MEDS: predniSONE 10 MG TAB PO SCH (08:20)
[2018-04-26] MEDS: glipiZIDE 5 MG TAB PO SCH (08:20)
[2018-04-26] MEDS: INSULIN LANTUS 100 UNITS/ML 10 ML VIAL SUBQ SCH (08:29)
[2018-04-26] MEDS: BLOOD GLUCOSE MONITORING 1 DEV DEV FS SCH (08:30)
--- NOTE | 2018-04-26 08:32 | NUR ---
ORDERED MEDICATIONS ADMINISTERED, BLOOD SUGAR 324, ORDERED LANTUS GIVEN, PATIENT REFUSED HEPARIN, LASIX, AND NEURONTIN. PATIENT ALSO C/O PAIN, REQUESTED NORCO, NORCO PRN GIVEN. PATIENT ALSO C/O OF ITCHINESS, REQUESTED BENADRYL. BENADRYL ADMINISTERED. PATIENT TOLERATED MEDICATIONS WELL. PATIENT REFUSED TO GO BACK TO HER ROOM, WHEELCHAIR IS CHARGING IN THE HALLWAY IN FRONT OF HER ROOM.
[2018-04-26] MEDS: GABAPENTIN 300 MG CAP PO SCH (09:00)
[2018-04-26] MEDS: FUROSEMIDE 40 MG/4 ML VIAL IVP SCH (09:00)
--- NOTE | 2018-04-26 09:15 | NUR ---
OBSERVED PT. UP IN MOBILIZER, EXPLAIN TO PT. THAT NO PROLONG SITTING POSITION (NO LONGER THEN 15 MINUTES) DUE TO THE PRESSURE INJURIES TO R/L ISCHIUM. PT. VERBALIZES UNDERSTAND BUT NON-COMPLIANCE TO TREATMENT PLAN.
--- NOTE | 2018-04-26 09:20 | NUR ---
PATIENT REQUESTED REMOVAL OF IV. LOCOMOTIVE ENGINEER ELECTRIC ALBIN REMOVED IV, IV CATHETER INTACT, MINIMAL BLOOD NOTED. PATIENT HAS ALL OF HER BELONGINGS ON HER MOTORIZED WHEELCHAIR. PATIENT ON HER WHEELCHAIR MOVING AROUND THE FLOOR. PATIENT REFUSED TO STAY IN HER ROOM. SECURITY CALLED.
--- NOTE | 2018-04-26 09:50 | NUR ---
INFORMED BY SECURITY THAT PATIENT ELOPED AND WAS IN ER FRONT LOBBY THEN WENT OFF THE PREMISES TO THE PHARMACY NEXT DOOR. PATIENT TOOK ALL HER BELONGINGS WITH HER.
== END 2018-04-26 09:50 | disposition left against medical advice (07) | DRG 871 ==
LOC: MED 09:49 → MTU 13:25
PROVIDERS: ADMIT General Practice; ATTEND General Practice
DX: A41.9 Sepsis, unspecified organism (principal); L89.154 Pressure ulcer of sacral region, stage 4; E43 Unspecified severe protein-calorie malnutrition; R53.2 Functional quadriplegia; L03.317 Cellulitis of buttock; E11.65 Type 2 diabetes mellitus with hyperglycemia; M06.9 Rheumatoid arthritis, unspecified; E11.42 Type 2 diabetes mellitus with diabetic polyneuropathy; M19.90 Unspecified osteoarthritis, unspecified site; E11.69 Type 2 diabetes mellitus with other specified complication; M62.50 Muscle wasting and atrophy, not elsewhere classified, unspecified site; J84.10 Pulmonary fibrosis, unspecified; E83.42 Hypomagnesemia; M79.2 Neuralgia and neuritis, unspecified; E11.51 Type 2 diabetes mellitus with diabetic peripheral angiopathy without gangrene; M16.12 Unilateral primary osteoarthritis, left hip; E86.0 Dehydration; G89.4 Chronic pain syndrome; F17.210 Nicotine dependence, cigarettes, uncomplicated; Z74.01 Bed confinement status; Z79.899 Other long term (current) drug therapy; Z68.22 Body mass index [BMI] 22.0-22.9, adult
CPT/HCPCS: 36415; 36600; 71045; 72192; 73080; 80048; 80053; 80305; 81003; 82140; 82150; 82550; 82553; 82803; 82948; 83036; 83605; 83690; 83735; 83874; 83880; 84100; 84134; 84443; 84484; 85025; 85384; 85610; 85730; 86886; 86900; 86901; 87040; 87070; 87081; 87086; 93005; 93925; 93970; 96361; 96365; 96375; 97140; 99285; J1644; J1815; J1940; J2270; J2543; J3010; J3475; J7030; J7512; J8610; Q0092; Q0163